=== PATIENT | female | born 1950 | race Caucasian/White ===

== ENCOUNTER → 2023-11-12 | Outpatient (CLI) | payer MEDICARE, SELFPAY ==
[2023-11-12 13:41] LABS: Amphetamine Urine VISTA NEGATIVE (<1000 ng/mL); Barbiturate Urine VISTA NEGATIVE (< 200 ng/mL); Benzodiazepine Urine VISTA NEGATIVE (< 200 ng/mL); Cocaine Urine VISTA NEGATIVE (< 300 ng/mL); Ecstacy Urine VISTA NEGATIVE (< 500 ng/mL); Methadone Urine VISTA NEGATIVE (< 300 ng/mL); PCP Urine VISTA NEGATIVE (< 25 ng/mL); THC Urine VISTA NEGATIVE (< 50 ng/mL); Vista UDS pH Range 4
== END | disposition home or self-care (01) ==
PROVIDERS: Referring Provider Anesthesiology; Visit Provider Anesthesiology
DX: F11.20 Opioid dependence, uncomplicated (principal)
CPT/HCPCS: 80307

== ENCOUNTER 2024-02-14 14:50 | Inpatient (IN) | payer MEDICARE, SELFPAY ==
[2024-02-14] VITALS (10 sets, daily range): BP systolic 110–137; BP diastolic 54–79; PULSE 65–88; RESP 16–20; TEMP 36.3–37.2; O2SAT 95–98; BMI 23.6; BMI 22.0
--- NOTE | 2024-02-14 14:57 | CT_ITS ---
STUDY: CT BRAIN WITHOUT CONTRAST REASON FOR EXAM: Female, 73 years old. weakness general RADIATION DOSAGE (If Supplied By Facility): CTDIvol = ( 44.99 ) mGy, DLP = ( 796.11 ) mGycm TECHNIQUE: Transaxial CT imaging of the brain was performed without administration of intravenous contrast material. Individualized dose optimization techniques were used for this CT. COMPARISON: No relevant priors. FINDINGS: Normal soft tissue structures. Normal calvarium. There is mild cerebral atrophy with widening of the extra-axial spaces and ventricular dilatation. There are areas of decreased attenuation within the white matter tracts of the supratentorial brain, consistent with microvascular disease changes. Normal basal ganglia and thalami. Normal brainstem. Normal cerebellum. There is no intracranial hemorrhage. There are no findings of an acute ischemic infarction. Atherosclerotic calcification of the cavernous portions of the internal carotid arteries bilaterally. Normal visualized paranasal sinuses. CT/Brain/Head without Contrast IMPRESSION: Chronic involutional changes of the brain. Electronically Signed: Josr Schreiber MD at 15:31 EDT ,
[2024-02-14 15:22] LABS: Absolute Lymphocyte Count 0.61 X10^3/uL (0.83-4.51); Absolute Neutrophil Count 7.5 X10^3/uL (2.0-7.7); Basophil# 0.03 X10^3/uL; Basophil% 0.3 % (0-1); Eosinophil# 0.11 X10^3/uL; Eosinophils% 1.2 % (0-5); Hematocrit 50.3 % (37-47); Hemoglobin 15.6 g/dL (12.0-15.0); Lymphocyte # 0.61 X10^3/ul (0.83-4.51); Lymphocyte % 6.6 % (19-41); Mean Corpuscular Hgb 28.9 pg (27.0-32.0); Mean Corpuscular Volume 93.3 fL (81-99); Mean Platelet Vol. 9.9 fl (6.2-12.0); Monocyte# 0.62 X10^3/uL; Monocyte% 6.7 % (0-10); NRBC Flagged by Analyzer 0 % (0-5); Neutrophil # 7.54 X10^3/uL (2.7-7.7); POSITIVE MORPHOLOGY YES; Platelet Count 214 K/mm3 (150-450); RBC Distribution Width CV 25.4 % (11.6-14.6); RBC Distribution Width SD 83.7 fl (35.1-43.9); Red Blood Count 5.39 M/mm3 (4.2-5.4); White Blood Count 9.3 K/mm3 (4.4-11.0)
--- NOTE | 2024-02-14 15:27 | RAD_ITS ---
STUDY: X-RAY CHEST REASON FOR EXAM: Female, 73 years old. Recent dx of pneumonia TECHNIQUE: AP and lateral views of the chest. COMPARISON: None. FINDINGS: EKG electrodes are seen. Small left pleural effusion with left lower lobe infiltrate. There is no demonstrated pleural abnormality. Normal size heart. Normal mediastinum and goyo. Normal visualized pulmonary arteries. There is atherosclerotic tortuosity of the aortic arch and descending thoracic aorta. There is demineralization of the osseous structures. Normal visualized ribs, clavicles, and shoulders. There is no demonstrated abnormality of the visualized soft tissue structures of the upper abdomen. RAD/Chest PA and Lateral IMPRESSION: Left pleural effusion with left basilar infiltrate. Electronically Signed: Josr Schreiber MD at 15:43 EDT ,
[2024-02-14 15:36] LABS: Differential Indicated SCAN CRITERIA MET
[2024-02-14 15:46] LABS: ALB/GLOB Ratio 0.8 RATIO (0.9-2.4); AST(SGOT) 54 U/L (15-37); Alanine Aminotransfer ALT/SGPT 99 U/L (13-56); Alkaline Phosphatase 248 U/L (45-117); Anion Gap 6 (5-15); BUN 20 mg/dL (7-18); BUN/Creat Ratio 23.6 RATIO (10-20); Chloride 114 mmol/L (98-107); Creatinine, Serum 0.85 mg/dL (0.55-1.02); EST Glomerular Filtration Rate 70 mL/min (>60); Est Glom Filt Rate - Afr Amer 85 mL/min (>60); Globulin 3.9 g/dL (2.2-4.2); Glucose 155 mg/dL (74-106); Lipase 27 U/L (13-75); Potassium 4.6 mmol/L (3.5-5.1); Protein, Total 6.9 g/dL (6.4-8.2); Sodium Level 143 mmol/L (136-145); Troponin-I HS 11 pg/mL (3.0-54.0)
[2024-02-14 15:52] LABS: Platelet Estimate ADEQUATE (ADEQ)
[2024-02-14 15:53] LABS: Anisocytosis 1+; Hypochromasia 1+
[2024-02-14 16:51] LABS: Mucous, Urine 0 SEEN /hpf (<or=2+)
[2024-02-14 16:54] LABS: Color, Urine Yellow (Yellow); Glucose, Dipstick Normal (Normal); Ketone-Dipstick Negative (Negative); Leukocyte Esterase-Dipstick 100 /ul (Negative); Nitrite-Dipstick Negative (Negative); Occult Blood-Urine 150 /ul (Negative); Protein-Dipstick Negative (Negative); Specific Gravity, Urine 1.015 (1.002-1.030); Urine Bilirubin Dipstick Negative (Negative); Urine Clarity Sl Cldy (Clear); Urine Urobilinogen Normal (Normal)
--- NOTE | 2024-02-14 16:58 | EDS_ITS ---
HPI History of Present Illness Chief Complaint: Weakness Narrative Narrative: Patient is a 73-year-old female with past medical of PTSD, T-cell lymphoma, CVA, type 2 diabetes, CKD who presented to the emergency department from pain management clinic for concern for stroke. According to the pain management physician who brought the patient down she was having her pump replaced today as he is making a medication adjustment. He noted that she had extreme weakness in her right upper extremity with unable to line installer repairer with her right hand which prompted them to bring her here further evaluation management. According to the patient she notes that she went to bed around 11 PM last night and was completely normal. States that she woke up around 6 AM and noted that she had extreme difficulty moving her right arm. Patient here in the Emergency Department states that now she can move her right arm she has decreased line installer repairer strength though. Patient's physician from pain management was concerned that she had a stroke and had similar symptoms in the past which prompted them to bring her h [facility] Medical History Depressed Dysphagia as late effect of cerebral aneurysm [place] disease Foot drop, bilateral Fibromyalgia Asthma PTSD (post-traumatic stress disorder) T-cell lymphoma Insomnia Pancreatitis GERD (gastroesophageal reflux disease) Gout Anxiety Anemia Hypothyroidism Essential hypertension CHF (congestive heart failure) Convulsion Type II diabetes mellitus Chronic kidney disease Cognitive communication deficit Hypokalemia Bacteremia Difficulty walking Weakness Pneumonia Sepsis Home Medications ?Medication ?Instructions ?Recorded ?Last Taken ?Type Lactobacillus rhamnosus GG 15 1 cap PO 4X/DAY 02/14/24 02/13/24 History billion cell sprinkle capsule (Culturelle) acetaminophen 325 mg tablet 650 mg PO Q4H PRN pain 02/14/24 02/05/24 History allopurinol 100 mg tablet 100 mg PO DAILY 02/14/24 02/13/24 History aspirin 81 mg tablet,delayed 81 mg PO DAILY 02/14/24 02/13/24 History release baclofen 10 mg tablet 10 mg PO Q8H PRN muscle spasm 02/14/24 02/13/24 History buspirone 10 mg tablet 20 mg PO TID 02/14/24 02/13/24 History clopidogrel 75 mg tablet 75 mg PO DAILY 02/14/24 02/13/24 History deutetrabenazine 12 mg tablet 12 mg PO BID 02/14/24 02/13/24 History (Austedo) docusate sodium 100 mg capsule 100 mg PO DAILY 02/14/24 02/13/24 History ergocalciferol (vitamin D2) 1,250 1,250 mcg PO WE 02/14/24 02/12/24 History mcg (50,000 unit) capsule ezetimibe 10 mg tablet 10 mg PO DAILY 02/14/24 02/13/24 History fludrocortisone 0.1 mg tablet 0.1 mg PO DAILY 02/14/24 02/12/24 History ipratropium 20 mcg-albuterol 100 1 puff inhalation 4X/DAY 02/14/24 02/13/24 History mcg/actuation mist for inhalation (Combivent Respimat) levothyroxine 75 mcg tablet 75 mcg PO DAILY 02/14/24 02/13/24 History vbgxwx-hsxonkpk-mhviqsh 2 cap PO 4X/DAY 02/14/24 02/13/24 History 24,000-76,000-120,000 unit capsule,delayed rel (Creon) loperamide 2 mg tablet 2 mg PO Q6H PRN loose stool 02/14/24 02/06/24 History lubiprostone 24 mcg capsule 24 mcg PO BID 02/14/24 02/13/24 History melatonin 5 mg tablet 5 mg PO DAILY 02/14/24 02/13/24 History metoprolol succinate 100 mg 100 mg PO DAILY 02/14/24 02/13/24 History tablet,extended release 24 hr mirtazapine 15 mg tablet 15 mg PO QHS 02/14/24 02/13/24 History montelukast 10 mg tablet 10 mg PO DAILY 02/14/24 02/13/24 History multivitamin (Daily Multi-Vitamin 1 tab PO DAILY 02/14/24 02/13/24 History tablet) nitroglycerin 0.3 mg sublingual 0.3 mg sublingual Q5M PRN chest 02/14/24 02/13/24 History tablet pain ondansetron 4 mg disintegrating 4 mg PO Q6H 02/14/24 02/06/24 History tablet pantoprazole 40 mg tablet,delayed 40 mg PO DAILY 02/14/24 02/13/24 History release paroxetine HCl 40 mg tablet 40 mg PO DAILY 02/14/24 02/13/24 History potassium chloride 20 mEq 20 meq PO DAILY 02/14/24 02/13/24 History tablet,extended release(part/cryst) prednisone 5 mg tablet 5 mg PO BID 02/14/24 02/13/24 History sennosides 8.6 mg-docusate sodium 1 tab-cap PO BID PRN constipation 02/14/24 02/14/24 History 50 mg tablet (Senna with Docusate Sodium) zonisamide 100 mg capsule 200 mg PO BID 02/14/24 02/14/24 History Allergy/AdvReac Type Severity Reaction Status Date / Time codeine Allergy Intermediate Nausea/Vom/ Verified 02/14/24 15:04 Diarrhea hydrocodone Allergy Intermediate Nausea Verified 02/14/24 15:04 adhesive tape Allergy Mild Hives Verified 02/14/24 15:04 furosemide (From Lasix) Allergy NEEDS Verified 02/14/24 15:04 FOLLOW-UP pregabalin (From Lyrica) Allergy NEEDS Verified 02/14/24 15:04 FOLLOW-UP celecoxib AdvReac Intermediate Nausea Verified 02/14/24 15:04 oxycodone AdvReac Intermediate Nausea Verified 02/14/24 15:04 lansoprazole AdvReac Nausea Verified 02/14/24 15:04 meloxicam AdvReac Nausea Verified 02/14/24 15:04 mirtazapine AdvReac Nausea Verified 02/14/24 15:04 naloxone (From Talwin NX) AdvReac Nausea Verified 02/14/24 15:04 pentazocine AdvReac Nausea Verified 02/14/24 15:04 rofecoxib AdvReac Nausea Verified 02/14/24 15:04 Social History Smoking Status: Never smoker ROS ROS ED ROS Narrative Constitutional: Denies any fevers, chills, headaches, lightness, dizziness Eyes: Denies change in vision double vision blurry Cardiovascular: Denies chest pain or palpitation Respiratory: Denies coughing wheezing shortness of breath Abdomen: Denies abdominal pain nausea vomit diarrhea : Denies urinary Neurological: Complains of right upper extremity weakness and hand weakness as noted above Musculoskeletal: Denies back pain Skin: States that she has bruising over her body EXAM Physical Exam Narrative Exam Narrative: General: Patient lying in bed rest comfortably did not appear to be in acute distress Head: Atraumatic, normocephalic Eyes: PERRL bilaterally, EOMI bilateral, no conjunctival injection noted Neck: Soft, supple, trachea midline Cardiovascular: Regular rate and rhythm no murmurs gallops rubs noted Respiratory: Clear to auscultation bilaterally no rales rhonchi or wheezes noted Abdomen: Soft, nondistended, nontender to palpation, bowel sounds present x 4 Musculoskeletal: Patient has decreased line installer repairer strength in the right hand when compared to the left Extremities: +4/5 strength noted in the bilateral upper and lower extremities, radial pulses +2/4 in bilateral upper extremities Neurological: Patient following commands knew that she was at [facility] year is 2023. She told me there was a clock on the wall and there was a TV on the wall. She told me that I did walk trauma left wrist. NIH of 0 GCS 15 Skin: Warm, dry, tact Const Vital Signs: 02/14/24 14:53 02/14/24 15:51 02/14/24 16:00 Temperature 97.4 F L Temperature Source Oral Pulse Rate 72 65 65 Respiratory Rate 20 H 16 16 Respiratory Effort Respiratory Pattern Blood Pressure 137/65 H 129/70 H 129/70 H Blood Pressure Mean 89 89 89 Pulse Ox 97 96 96 Oxygen Delivery Method Room Air Room Air Room Air 02/14/24 16:22 02/14/24 17:00 02/14/24 17:19 Temperature 98.9 F Temperature Source Pulse Rate 72 72 Respiratory Rate 19 H 19 H Respiratory Effort Normal Non-Labored Respiratory Pattern Normal Blood Pressure 110/59 L 119/79 Blood Pressure Mean 76 92 Pulse Ox 97 96 Oxygen Delivery Method Room Air 02/14/24 17:30 Temperature 98.9 F Temperature Source Oral Pulse Rate 75 Respiratory Rate 17 Respiratory Effort Respiratory Pattern Blood Pressure 129/60 H Blood Pressure Mean 83 Pulse Ox 97 Oxygen Delivery Method Room Air MDM MDM MDM Narrative Medical decision making narrative: Patient is a 73-year-old female who presented to the emergency department with a chief complaint of right upper extremity weakness that has now improved. Her l ast known well was 11 PM last night when she went to bed. Patient would not be a tenecteplase candidate as her last known well once again was as noted and her symptoms are improved. Patient will have a workup performed here on the differential diagnose includes but not limited to TIA, intracranial hemorrhage, UTI, pneumonia. Once workup is obtained reviewed she will be reevaluated. Patient CBC was reviewed and was largely unremarkable no evidence of leukocytosis white blood count normal at 9.3, hemoglobin was 15.6, platelet count normal at 214. Patient's sodium normal at 143, potassium normal at 4.6, creatinine normal at 0.85. Patient's lactic acid normal at 2, AST and ALT were 54 and 99 respectively no previous blood draw to compare to alk phosphatase elevated to 48. Patient's urinalysis showed 100 leukocyte esterase negative nitrates in the urine microscopic exam is pending. Patient CT head and brain without contrast reviewed and showed chronic involutional changes of the brain no acute intracranial processes. Patient's chest x-ray was reviewed by myself and by radiology which showed a left pleural effusion with left basilar infiltrate. Will give her a dose of Rocephin and azithromycin. At this point time do believe the patient will warrant admission for her TIA with her right upper extremity weakness that has resolved overall with still some decreased line installer repairer strength in the right hand when compared to the left. Patient case will be discussed with hospitalist. Patient case was discussed with hospitalist who accept patient for admission. She is requesting adding on a CTA of the head and neck which was added on. Patient was notified is agreeable this plan all question concerns answered bedside. Lab Data Labs: Laboratory Results - last 24 hr 02/14/24 02/14/24 15:15 16:45 WBC 9.3 RBC 5.39 Hgb 15.6 H Hct 50.3 H MCV 93.3 MCH 28.9 MCHC 31.0 L RDW Std Deviation 83.7 H RDW Coeff of Hardy 25.4 H Plt Count 214 MPV 9.9 Immature Gran % (Auto) 4.200 H Neut % (Auto) 81.0 H Lymph % (Auto) 6.6 L [place] % (Auto) 6.7 Eos % (Auto) 1.2 Baso % (Auto) 0.3 Absolute Neuts (auto) 7.5 Absolute Lymphs (auto) 0.61 L Nucleated RBC % 0 Differential Comment Platelet Estimate ADEQUATE Hypochromasia 1+ Anisocytosis 1+ Sodium 143 Potassium 4.6 Chloride 114 H Carbon Dioxide 22.0 Anion Gap 6 BUN 20 H Creatinine 0.85 Estim Creat Clear Calc 50.90 Est GFR (MDRD) Af Amer 85 Est GFR (MDRD) Non-Af 70 BUN/Creatinine Ratio 23.6 H Glucose 155 H Lactic Acid 2.0 Calcium 9.0 Total Bilirubin 0.20 AST 54 H ALT 99 H Alkaline Phosphatase 248 H Troponin I High Sens 11 Total Protein 6.9 Albumin 3.0 L Globulin 3.9 Albumin/Globulin Ratio 0.8 L Lipase 27 Urine Color Yellow Urine Clarity Sl Cldy Urine pH 6.0 Ur Specific [place] 1.015 Urine Protein Negative Urine Glucose (UA) Normal Urine Ketones Negative Urine Occult Blood 150 H Urine Nitrite Negative Urine Bilirubin Negative Urine Urobilinogen Normal Ur Leukocyte Esterase 100 H Urine RBC 25-50 SEEN Urine WBC 10-25 SEEN Ur Squamous Epith Cells 5-10 SEEN Ur Transition Epith Cell 0-5 SEEN Ur Renal Epithelial Cell 0-5 SEEN Urine Bacteria RARE Urine Mucus 0 SEEN Radiography Diagnostic Testing: Clinical Impression(s) from Imaging Studies Brain CT 02/14/24 14:57 IMPRESSION: Chronic involutional changes of the brain. Electronically Signed: Josr Schreiber MD at 15:31 EDT , Chest X-Ray 02/14/24 15:27 IMPRESSION: Left pleural effusion with left basilar infiltrate. Electronically Signed: Josr Schreiber MD at 15:43 EDT , Discharge Plan Triage Chief Complaint: Weakness ED Provider: Miguel Ángel Oakes Dx/Rx/DC Orders Clinical Impression: Brain TIA Prescriptions: No Action acetaminophen 325 mg tablet 650 mg PO Q4H PRN (Reason: pain) allopurinol 100 mg tablet 100 mg PO DAILY aspirin 81 mg tablet,delayed release (DR/EC) 81 mg PO DAILY [place] 12 mg tablet 12 mg PO BID baclofen 10 mg tablet 10 mg PO Q8H PRN (Reason: muscle spasm) buspirone 10 mg tablet 20 mg PO TID clopidogrel 75 mg tablet 75 mg PO DAILY Creon 24,000-76,000 -120,000 unit capsule,delayed release(DR/EC) 2 cap PO 4X/DAY Combivent Respimat 20-100 mcg/actuation mist 1 puff inhalation 4X/DAY Culturelle 15 billion cell capsule, sprinkle 1 cap PO 4X/DAY multivitamin [Daily Multi-Vitamin] Tablet 1 tab PO DAILY docusate sodium 100 mg capsule 100 mg PO DAILY ergocalciferol (vitamin D2) 1,250 mcg (50,000 unit) capsule 1,250 mcg PO WE fludrocortisone 0.1 mg tablet 0.1 mg PO DAILY Rx Instructions: HOLD IF SBP >130 ezetimibe 10 mg tablet 10 mg PO DAILY levothyroxine 75 mcg tablet 75 mcg PO DAILY loperamide 2 mg tablet 2 mg PO Q6H PRN (Reason: loose stool) lubiprostone 24 mcg capsule 24 mcg PO BID melatonin 5 mg tablet 5 mg PO DAILY metoprolol succinate 100 mg tablet extended release 24 hr 100 mg PO DAILY Patient Comments: MED LIST STATES 50MG, PT GOT 100MG FILLED ON 01/20/24 montelukast 10 mg tablet 10 mg PO DAILY mirtazapine 15 mg tablet 15 mg PO QHS nitroglycerin 0.3 mg tablet, sublingual 0.3 mg sublingual Q5M PRN (Reason: chest pain) Rx Instructions: do not exceed 3 doses per episode ondansetron 4 mg tablet,disintegrating 4 mg PO Q6H prednisone 5 mg tablet 5 mg PO BID potassium chloride 20 mEq tablet,ER particles/crystals 20 meq PO DAILY pantoprazole 40 mg tablet,delayed release (DR/EC) 40 mg PO DAILY paroxetine HCl 40 mg tablet 40 mg PO DAILY Patient Comments: MED LIST STATES 20MG, PT GOT 40MG FILLED ON 01/20/24 sennosides-docusate sodium [Senna with Docusate Sodium] 8.6-50 mg tablet 1 tab-cap PO BID PRN (Reason: constipation) zonisamide 100 mg capsule 200 mg PO BID Primary Care Provider: Owen Nguyen Referrals: Owen Nguyen MD [Primary Care Provider] - Print Language: Guyanese
[2024-02-14 17:06] LABS: Red Blood Cells-Urine 25-50 SEEN /hpf (0-5); Squamous Epithelial Cells - UA 5-10 SEEN /hpf (5-10); White Blood Cells 10-25 SEEN /hpf (0-5)
[2024-02-14 17:07] LABS: Bacteria RARE /hpf (None Seen); Renal Epithelial Cells 0-5 SEEN /hpf (0-5); Transitional Epithelial - Ur 0-5 SEEN /hpf (0-5)
[2024-02-14] MEDS: Ceftriaxone 1 GM/50 ML BAG IV (17:31)
--- NOTE | 2024-02-14 17:40 | CT_ITS ---
INDICATION: right arm weakness EXAMINATION: CT BRAIN WITHOUT CONTRAST, CTA HEAD, AND CTA NECK TECHNIQUE: Noncontrast axial images were obtained of the brain. Subsequently, routine carotid CT angiogram protocol was performed without and with IV contrast. In addition, images were obtained of the [place]. NASCET criteria using the distal ICAs for comparison were used for evaluation of stenoses. 3D reconstructions were reviewed. The protocol utilizes one or more of the following dose reduction techniques: automated exposure control, adjustment of mA and/or kV according to patient size,and/or use of iterative reconstruction technique. IV Contrast dosage and agent: COMPARISON: FINDINGS: --CT BRAIN WITHOUT CONTRAST: BRAIN PARENCHYMA: No intra- or extra-axial hemorrhage. No evidence of acute infarct. No intracranial mass or mass effect. There is preservation of the mcallister/white matter interface. Posterior fossa structures are unremarkable. CSF SPACES: Appropriate for age. No hydrocephalus. Basal cisterns are patent. CALVARIUM, SKULL BASE, PARANASAL SINUSES AND MASTOID AIR CELLS: Clear. No discrete lytic or blastic abnormalities. ASPECTS Score for Acute Strokes: 10 --CTA NECK: AORTIC ARCH AND BRANCHES: Normal anatomy, patent. RIGHT CCA: No occlusion, significant stenosis or dissection. RIGHT ICA: No occlusion, significant stenosis or dissection. LEFT CCA: No occlusion, significant stenosis or dissection. LEFT ICA: No occlusion, significant stenosis or dissection. Possible fibromuscular dysplasia at the distal segment. RIGHT VERTEBRAL ARTERY: No occlusion, significant stenosis or dissection. LEFT VERTEBRAL ARTERY: No occlusion, significant stenosis or dissection. NECK SOFT TISSUES: Unremarkable. Bilateral patchy groundglass densities in the visualized lungs. Bilateral pleural effusions, right more than left. --CTA HEAD: --Anterior circulation: ICAs: No significant stenosis at the intracranial/visualized segments. ACAs: No significant stenosis at the visualized segments. ACOM: Present. MCAs: No significant stenosis at the visualized segments. --Posterior circulation: PCOMs: Patent bilaterally. miller rod mill: No significant stenosis at the visualized segments. BASILAR ARTERY: No significant stenosis. VERTEBRAL ARTERIES: No significant stenosis at the intradural/visualized segments. No evidence of intracranial aneurysm or vascular malformation. CT/CTA Head AND Neck W/ Contrast IMPRESSION: Possible fibromuscular dysplasia at the distal segment of the cervical left internal carotid artery. Electronically Signed: Miguel Ángel Cool DO at 18:33 EDT ,
--- NOTE | 2024-02-14 17:45 | ED.RN ---
This RN called report to RUBEN Dubose at [facility].
--- NOTE | 2024-02-14 18:51 | HP.PCM.HOS_ITS ---
HPI - General General Date of Admission: 02/14/24 Date of Service: 02/14/24 Chief Complaint: Right arm and leg weakness HPI Narrative BERNADETTE EVERETT, is a 73 F with history of chronic abdominal pain due to gastric lymphoma and chronic pancreatitis following with pain management with Dilaudid pain pump in place, gout, hypothyroidism, IBS, anxiety who presented to [facility] ED 02/10/2024 with right upper and lower extremity weakness and paresthesias. Patient's last known normal was 11 PM the night before when she went to bed and she woke up with right arm and leg weakness and paresthesias. Went to her pain management appointment and due to her right- sided deficits she was sent to the ED. Given patient's last known well being the night before stroke call not initiated as patient outside window for TNK. She had CTA which showed possible fibromuscular dysplasia at distal segment of the cervical left internal carotid artery and CT showed chronic changes. Given her deficits and concerns for CVA hospitalist contacted for admission. Patient evaluated at bedside and reports she was doing fine at 11 PM last night and then woke up around 6 AM with the inability to move her right arm or leg and additionally had paresthesias there. Patient went to her pain management physician and due to her persistent deficits she was sent to the ED. She does not feel she has had any significant change in her extremities from this a.m. She does not think she has had any word finding difficulty and denies any changes in her vision or face that she is aware of. Has some decrease sensation in right upper and lower extremity. Has some cough that is residual from recent pneumonia with no increase or change, denies any increased shortness of breath. Has chronic abdominal pain that is unchanged from usual. No other new or focal complaints. FORMERLY [facility] Medical History Depressed Dysphagia as late effect of cerebral aneurysm Gomez disease Foot drop, bilateral Fibromyalgia Asthma PTSD (post-traumatic stress disorder) T-cell lymphoma Insomnia Pancreatitis GERD (gastroesophageal reflux disease) Gout Anxiety Anemia Hypothyroidism Essential hypertension CHF (congestive heart failure) Convulsion Type II diabetes mellitus Chronic kidney disease Cognitive communication deficit Hypokalemia Bacteremia Difficulty walking Weakness Pneumonia Sepsis Home Medications ?Medication ?Instructions ?Recorded ?Last Taken ?Type Lactobacillus rhamnosus GG 15 1 cap PO 4X/DAY 02/14/24 02/13/24 History billion cell sprinkle capsule (Culturelle) acetaminophen 325 mg tablet 650 mg PO Q4H PRN pain 02/14/24 02/05/24 History allopurinol 100 mg tablet 100 mg PO DAILY 02/14/24 02/13/24 History aspirin 81 mg tablet,delayed 81 mg PO DAILY 02/14/24 02/13/24 History release baclofen 10 mg tablet 10 mg PO Q8H PRN muscle spasm 02/14/24 02/13/24 History buspirone 10 mg tablet 20 mg PO TID 02/14/24 02/13/24 History clopidogrel 75 mg tablet 75 mg PO DAILY 02/14/24 02/13/24 History deutetrabenazine 12 mg tablet 12 mg PO BID 02/14/24 02/13/24 History (Austedo) docusate sodium 100 mg capsule 100 mg PO DAILY 02/14/24 02/13/24 History ergocalciferol (vitamin D2) 1,250 1,250 mcg PO WE 02/14/24 02/12/24 History mcg (50,000 unit) capsule ezetimibe 10 mg tablet 10 mg PO DAILY 02/14/24 02/13/24 History fludrocortisone 0.1 mg tablet 0.1 mg PO DAILY 02/14/24 02/12/24 History ipratropium 20 mcg-albuterol 100 1 puff inhalation 4X/DAY 02/14/24 02/13/24 History mcg/actuation mist for inhalation (Combivent Respimat) levothyroxine 75 mcg tablet 75 mcg PO DAILY 02/14/24 02/13/24 History jxnemp-utvqcpur-jbdnbgf 2 cap PO 4X/DAY 02/14/24 02/13/24 History 24,000-76,000-120,000 unit capsule,delayed rel (Creon) loperamide 2 mg tablet 2 mg PO Q6H PRN loose stool 02/14/24 02/06/24 History lubiprostone 24 mcg capsule 24 mcg PO BID 02/14/24 02/13/24 History melatonin 5 mg tablet 5 mg PO DAILY 02/14/24 02/13/24 History metoprolol succinate 100 mg 100 mg PO DAILY 02/14/24 02/13/24 History tablet,extended release 24 hr mirtazapine 15 mg tablet 15 mg PO QHS 02/14/24 02/13/24 History montelukast 10 mg tablet 10 mg PO DAILY 02/14/24 02/13/24 History multivitamin (Daily Multi-Vitamin 1 tab PO DAILY 02/14/24 02/13/24 History tablet) nitroglycerin 0.3 mg sublingual 0.3 mg sublingual Q5M PRN chest 02/14/24 02/13/24 History tablet pain ondansetron 4 mg disintegrating 4 mg PO Q6H 02/14/24 02/06/24 History tablet pantoprazole 40 mg tablet,delayed 40 mg PO DAILY 02/14/24 02/13/24 History release paroxetine HCl 40 mg tablet 40 mg PO DAILY 02/14/24 02/13/24 History potassium chloride 20 mEq 20 meq PO DAILY 02/14/24 02/13/24 History tablet,extended release(part/cryst) prednisone 5 mg tablet 5 mg PO BID 02/14/24 02/13/24 History sennosides 8.6 mg-docusate sodium 1 tab-cap PO BID PRN constipation 02/14/24 02/14/24 History 50 mg tablet (Senna with Docusate Sodium) zonisamide 100 mg capsule 200 mg PO BID 02/14/24 02/14/24 History Allergy/AdvReac Type Severity Reaction Status Date / Time codeine Allergy Intermediate Nausea/Vom/ Verified 02/14/24 15:04 Diarrhea hydrocodone Allergy Intermediate Nausea Verified 02/14/24 15:04 adhesive tape Allergy Mild Hives Verified 02/14/24 15:04 furosemide (From Lasix) Allergy NEEDS Verified 02/14/24 15:04 FOLLOW-UP pregabalin (From Lyrica) Allergy NEEDS Verified 02/14/24 15:04 FOLLOW-UP celecoxib AdvReac Intermediate Nausea Verified 02/14/24 15:04 oxycodone AdvReac Intermediate Nausea Verified 02/14/24 15:04 lansoprazole AdvReac Nausea Verified 02/14/24 15:04 meloxicam AdvReac Nausea Verified 02/14/24 15:04 mirtazapine AdvReac Nausea Verified 02/14/24 15:04 naloxone (From John RYAN) AdvReac Nausea Verified 02/14/24 15:04 pentazocine AdvReac Nausea Verified 02/14/24 15:04 rofecoxib AdvReac Nausea Verified 02/14/24 15:04 Social History Smoking Status: Never smoker ROS ROS Narrative General: Denies fever/chills HENT: Denies stuffy nose, denies sore throat EYES: Denies changes in vision Resp: Still has residual cough from pneumonia but no worsening, denies shortness of breath Cardiac: Denies chest pain GI: Chronic abdominal pain and GI upset : Denies changes in urination Extremity: Denies swelling MSK: Right sided weakness upper and lower Neuro: Decreased sensation in right sided extremities Heme: Easy bruising Skin: Denies rashes Psychiatric: No complaints voiced Vital Signs Vital Signs Vital Signs: 02/14/24 14:53 02/14/24 15:51 02/14/24 16:00 Temperature 97.4 F L Temperature Source Oral Pulse Rate 72 65 65 Respiratory Rate 20 H 16 16 Respiratory Effort Respiratory Pattern Blood Pressure 137/65 H 129/70 H 129/70 H Blood Pressure Mean 89 89 89 Pulse Ox 97 96 96 Oxygen Delivery Method Room Air Room Air Room Air 02/14/24 16:22 02/14/24 17:00 02/14/24 17:19 Temperature 98.9 F Temperature Source Pulse Rate 72 72 Respiratory Rate 19 H 19 H Respiratory Effort Normal Non-Labored Respiratory Pattern Normal Blood Pressure 110/59 L 119/79 Blood Pressure Mean 76 92 Pulse Ox 97 96 Oxygen Delivery Method Room Air 02/14/24 17:30 02/14/24 18:00 Temperature 98.9 F Temperature Source Oral Pulse Rate 75 79 Respiratory Rate 17 20 H Respiratory Effort Respiratory Pattern Blood Pressure 129/60 H 121/54 H Blood Pressure Mean 83 76 Pulse Ox 97 98 Oxygen Delivery Method Room Air Room Air Weight Weight: 62.6 kg Body Mass Index (BMI) 23.6 Physical Exam Narrative General: Alert, oriented, no apparent distress HEENT: Atraumatic, normocephalic Eyes: Anicteric, normal conjunctiva, extraocular movements intact, pupils equal Neck: Supple Respiratory: Somewhat diminished left base, normal respiratory effort Cardiovascular: Regular rate and rhythm GI: Soft, diffusely tender without rebound, guarding, rigidity Extremities: No edema Musculoskeletal: Strength 3- out of 5 in right upper extremity, 5 out of 5 left upper extremity, 1 out of 5 right lower extremity, 5 out of 5 left lower extremity Neuro: Decreased sensation in right upper and lower extremities, possibly some mild dysarthria, cranial nerves II through XII otherwise appear intact, unable to perform [id number] with right hand, no difficulty with left Skin: Some various diffuse bruising Psych: Cooperative Results Lab / Micro Data 02/14/24 15:15 02/14/24 15:15 Labs: Laboratory Results - last 24 hr 02/14/24 15:15: WBC 9.3, RBC 5.39, Hgb 15.6 H, Hct 50.3 H, MCV 93.3, MCH 28.9, M CHC 31.0 L, RDW Std Deviation 83.7 H, RDW Coeff of Hardy 25.4 H, Plt Count 214, MPV 9.9, Immature Gran % (Auto) 4.200 H, Neut % (Auto) 81.0 H, Lymph % (Auto) 6.6 L, [place] % (Auto) 6.7, Eos % (Auto) 1.2, Baso % (Auto) 0.3, Absolute Neuts (auto) 7.5, Absolute Lymphs (auto) 0.61 L, Nucleated RBC % 0, Differential Comment , Platelet Estimate ADEQUATE, Hypochromasia 1+, Anisocytosis 1+, Sodium 143, Potassium 4.6, Chloride 114 H, Carbon Dioxide 22.0, Anion Gap 6, BUN 20 H, Creatinine 0.85, Estim Creat Clear Calc 50.90, Est GFR (MDRD) Af Amer 85, Est GFR (MDRD) Non-Af 70, BUN/Creatinine Ratio 23.6 H, Glucose 155 H, Lactic Acid 2.0, Calcium 9.0, Total Bilirubin 0.20, AST 54 H, ALT 99 H, Alkaline Phosphatase 248 H, Troponin I High Sens 11, Total Protein 6.9, Albumin 3.0 L, Globulin 3.9, Albumin/Globulin Ratio 0.8 L, Lipase 27 02/14/24 16:45: Urine Color Yellow, Urine Clarity Sl Cldy, Urine pH 6.0, Ur Specific [place] 1.015, Urine Protein Negative, Urine Glucose (UA) Normal, Urine Ketones Negative, Urine Occult Blood 150 H, Urine Nitrite Negative, Urine Bilirubin Negative, Urine Urobilinogen Normal, Ur Leukocyte Esterase 100 H, Urine RBC 25-50 SEEN, Urine WBC 10-25 SEEN, Ur Squamous Epith Cells 5-10 SEEN, Ur Transition Epith Cell 0-5 SEEN, Ur Renal Epithelial Cell 0-5 SEEN, Urine Bacteria RARE, Urine Mucus 0 SEEN Imaging Radiology Impression Brain CT 02/14/24 14:57 IMPRESSION: Chronic involutional changes of the brain. Electronically Signed: Josr Schreiber MD at 15:31 EDT , Chest X-Ray 02/14/24 15:27 IMPRESSION: Left pleural effusion with left basilar infiltrate. Electronically Signed: Josr Schreiber MD at 15:43 EDT , Head/Neck CTA 02/14/24 17:40 IMPRESSION: Possible fibromuscular dysplasia at the distal segment of the cervical left internal carotid artery. 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 Patient not TNK candidate due to last known normal 11 PM last night and no large vessel occlusion that would be candidate for thrombectomy -Admit to tele -CT head w/ chronic changes in ED -CTA head and neck with possible fibromuscular dysplasia at distal segment of cervical left internal carotid artery -Discussed with vascular surgeon, no acute intervention necessary, she be on DAPT and she can be seen in the office on discharge -Unable to obtain MRI due to patient's pain pump which she confirmed, repeat CT at 24 hours -NIH q4hr -Continue DAPT and statin -Echo w/ bubble study -PT/OT/Speech eval -Teleneuro consult placed -Hold BP medications to allow for permissive hypertension for 24 hours unless SBP greater than 220 or DBP greater than 120 or until stroke is ruled out # Chronic abdominal pain/chronic pancreatitis/gastric lymphoma/implanted Dilaudid pain pump/IBS -Pain pump in place -Continue Creon -Continue lubiprostone if able # COPD -Patient on home inhalers, will continue -Had recent pneumonia which was treated, has not had any increased shortness of breath or change in cough so suspect chest x-ray findings may be residual from recent pneumonia -Given patient afebrile, no elevated white count, no increased shortness of breath, no worsening cough/significantly productive cough we will hold off on further IV antibiotics #Hx movement disorder -On deutetrabenazine -Continue if someone able to bring pt supply #Hypothyroidism -Continue Synthroid #GERD -Continue PPI # Gout -Continue allopurinol #DVT ppx: Lovenox subcu Jolene Wagoner MD Time spent in the patient's overall evaluation,decision-making process, review of diagnostic data, adjustment of management, discussion with other providers, nursing nursing and ancillary staff involved in patient's care documentation, 76 Minutes Charges/Coding Visit Charges Inpatient E&M: 32088 Init Hosp L3
[2024-02-14] MEDS: Azithromycin 500 MG in Dextrose 5%-Water (250mL Bag) 250 ML 250 MG IV (18:53)
[2024-02-14 19:19] LABS: Reflex Lactate? Y
[2024-02-14 20:16] LABS: Lactic Acid 1.7 mmol/L (0.4-1.9)
--- NOTE | 2024-02-14 21:15 | ECHOD_ITS ---
Reason For Study: TIA/STROKE Procedure This was a 2D Doppler, Color Flow transthoracic echocardiogram. Exam performed portable in patient room. Left Ventricle Normal LV size. The estimated ejection fraction is 65 %. No evidence for diastolic dysfunction. No regional wall motion abnormalities noted. Right Ventricle Normal RV size. Normal systolic function. Atria The left and right atria are normal. No doppler evidence for ASD. Bubble contrast study negative for right to left interatrial shunt. Mitral Valve There is no mitral valve stenosis. No mitral valve insufficiency. Tricuspid Valve There is no tricuspid stenosis. Unable to estimate RV systolic pressure due to inadequate jet, pulmonary artery pressure probably normal. Aortic Valve Trisinus/trileaflet aortic valve. There is no aortic stenosis. Mild (1+) aortic valve insufficiency. Pulmonic Valve There is no pulmonic valvular stenosis. No pulmonic valve insufficiency. Great Vessels Normal aortic root. Pericardium/Pleural Small pericardial effusion. Medication Performed a rapid injection of agitated mix of 9 cc saline and 1cc air to assess for atrial septal defect. MMode/2D Measurements & Calculations RVDd: 2.9 cm LVOT diam: 1.8 cm Ao root diam: 2.9 cm LVOT area: 2.4 cm2 asc Aorta Diam: 2.7 cm LAV(MOD-bp): 14.7 ml LVAd ap4: 14.7 cm2 LAV(MOD-bp) Indexed: 9.1 ml/m2 LVLd ap4: 6.1 cm LAV(MOD-sp2): 12.7 ml EDV(MOD-sp4): 30.7 ml LAV(MOD-sp4): 16.8 ml EDV(sp4-el): 29.9 ml LVAs ap4: 8.5 cm2 LVLs ap4: 4.6 cm ESV(MOD-sp4): 14.1 ml ESV(sp4-el): 13.2 ml EF(MOD-sp4): 54.2 % EF(sp4-el): 55.8 % SV(MOD-sp4): 16.6 ml SV(sp4-el): 16.7 ml LA A4 area: 9.0 cm2 RA A4 area: 7.2 cm2 Time Measurements MV dec time: 0.18 sec Doppler Measurements & Calculations MV E max chris: 62.9 cm/sec Lat Peak E' Chris: 5.8 cm/sec Med Peak E' Chris: 6.9 cm/sec MV A max chris: 80.4 cm/sec E/E' lat: 10.9 E/E' med: 9.2 MV E/A: 0.78 MV dec slope: 342.9 cm/sec2 Ao V2 max: 108.0 cm/sec LV V1 max: 113.3 cm/sec Ao max P.7 mmHg LV V1 max P.1 mmHg Ao V2 mean: 76.7 cm/sec LV V1 mean P.5 mmHg Ao mean P.6 mmHg LV V1 mean: 73.1 cm/sec Ao V2 VTI: 22.8 cm LV V1 VTI: 24.4 cm AV (velocity ratio): 1.1 LANCE(I,D): 2.6 cm2 LANCE(V,D): 2.6 cm2 SV(LVOT): 59.8 ml PA V2 max: 112.8 cm/sec PA max PG (full): 0.19 mmHg ECHO/Echo Complete Interpretation Summary The estimated ejection fraction is 65 %. No evidence for diastolic dysfunction. Mild (1+) aortic valve insufficiency. Small pericardial effusion. Ordering Physician: Jolene Wagoner Referring Physician: OLIVE GALVAN Performed By: Linda Sanchez and Student
[2024-02-14] MEDS: Lactobacillis Acidophilus 1 CAP PO (23:03)
[2024-02-14] MEDS: Creon 24,000 unit DR Capsule 2 CAP PO (23:03)
[2024-02-14] MEDS: busPIRone 5 MG Tablet 20 MG PO (23:03)
[2024-02-14] MEDS: Mirtazapine 15 MG Tablet PO (23:03)
[2024-02-14] MEDS: Aspirin 325 MG Tablet PO (23:03)
[2024-02-14] MEDS: Baclofen 10 MG Tablet PO (23:06)
[2024-02-14 23:32] LABS: Bedside Glucose 87 mg/dL (74-106)
[2024-02-15] VITALS (12 sets, daily range): BP systolic 87–149; BP diastolic 44–71; PULSE 63–81; RESP 16–18; TEMP 36.3–36.8; O2SAT 95–99; BMI 22.0
[2024-02-15] MEDS: ZONISAMIDE 100 MG CAPSULE 200 MG PO ×3 (00:05→21:52)
[2024-02-15] MEDS: Menthol/Lanolin/Calamine/Znox 113 GM Tube 1 APPLIC TOPICAL ×3 (00:05→20:48)
[2024-02-15] MEDS: Nystatin Powder 15gm Bottle 1 APPLIC TOPICAL ×2 (00:06→20:48)
[2024-02-15] MEDS: 0.9% Normal Saline (500mL Bag) 500 ML 999 ML IV (01:52)
[2024-02-15] MEDS: busPIRone 5 MG Tablet 20 MG PO ×3 (07:02→20:46)
[2024-02-15] MEDS: Levothyroxine 75 MCG Tablet PO (07:03)
[2024-02-15] MEDS: Ipratropium/Albuterol Sulfate 3 ML AMPUL.NEB INHALATION ×3 (07:19→19:30)
[2024-02-15 08:16] LABS: Absolute Neutrophil Count 6.1 X10^3/uL (2.0-7.7); Basophil% 1.1 % (0-1); Eosinophil# 0.33 X10^3/uL; Eosinophils% 3.7 % (0-5); Hematocrit 48.6 % (37-47); Hemoglobin 14.8 g/dL (12.0-15.0); Lymphocyte % 14.5 % (19-41); Mean Corp Hgb Conc 30.5 g/dL (32-36); Mean Corpuscular Hgb 29.1 pg (27.0-32.0); Mean Corpuscular Volume 95.7 fL (81-99); Monocyte# 0.71 X10^3/uL; Monocyte% 7.9 % (0-10); NRBC Flagged by Analyzer 0 % (0-5); Neutrophil # 6.08 X10^3/uL (2.7-7.7); Neutrophil % 68.1 % (47-70); POSITIVE MORPHOLOGY YES; Platelet Count 213 K/mm3 (150-450); RBC Distribution Width CV 25.5 % (11.6-14.6); RBC Distribution Width SD 86.4 fl (35.1-43.9); Red Blood Count 5.08 M/mm3 (4.2-5.4); White Blood Count 8.9 K/mm3 (4.4-11.0)
[2024-02-15 08:24] LABS: Differential Indicated SCAN CRITERIA MET
--- NOTE | 2024-02-15 08:33 | PN.HOSP_ITS ---
Reason for Visit Reason for Visit: Diagnoses Weakness (02/14/24) Subjective Subjective Still with right sided weakness. Asking for something for abdominal pain Objective Data Objective Data Vital Signs: Vital Signs Temp Pulse Resp BP Pulse Ox O2 Del Method 36.4 C L 63 16 118/55 L 95 Room Air 02/15/24 08:00 02/15/24 08:00 02/15/24 08:00 02/15/24 08:00 02/15/24 08:00 02/15/24 08:00 Oxygen Delivery Method Room Air Weight: 58.3 kg Body Mass Index (BMI) 22.0 Intake & Output: Intake and Output for Last 24 Hours 02/13/24 02/14/24 02/15/24 23:59 23:59 23:59 Intake Total 305 / 305 500 / 500 Output Total 400 / 400 Balance 305 / 305 100 / 100 Lab / Micro Data 02/15/24 07:03 02/15/24 07:03 Labs: Laboratory Results - last 24 hr 02/14/24 15:15: WBC 9.3, RBC 5.39, Hgb 15.6 H, Hct 50.3 H, MCV 93.3, MCH 28.9, M CHC 31.0 L, RDW Std Deviation 83.7 H, RDW Coeff of Hardy 25.4 H, Plt Count 214, MPV 9.9, Immature Gran % (Auto) 4.200 H, Neut % (Auto) 81.0 H, Lymph % (Auto) 6.6 L, [place] % (Auto) 6.7, Eos % (Auto) 1.2, Baso % (Auto) 0.3, Absolute Neuts (auto) 7.5, Absolute Lymphs (auto) 0.61 L, Nucleated RBC % 0, Differential Comment , Platelet Estimate ADEQUATE, Hypochromasia 1+, Anisocytosis 1+, Sodium 143, Potassium 4.6, Chloride 114 H, Carbon Dioxide 22.0, Anion Gap 6, BUN 20 H, Creatinine 0.85, Estim Creat Clear Calc 50.90, Est GFR (MDRD) Af Amer 85, Est GFR (MDRD) Non-Af 70, BUN/Creatinine Ratio 23.6 H, Glucose 155 H, Lactic Acid 2.0, Calcium 9.0, Total Bilirubin 0.20, AST 54 H, ALT 99 H, Alkaline Phosphatase 248 H, Troponin I High Sens 11, Total Protein 6.9, Albumin 3.0 L, Globulin 3.9, Albumin/Globulin Ratio 0.8 L, Lipase 27 02/14/24 16:45: Urine Color Yellow, Urine Clarity Sl Cldy, Urine pH 6.0, Ur Specific [place] 1.015, Urine Protein Negative, Urine Glucose (UA) Normal, Urine Ketones Negative, Urine Occult Blood 150 H, Urine Nitrite Negative, Urine Bilirubin Negative, Urine Urobilinogen Normal, Ur Leukocyte Esterase 100 H, Urine RBC 25-50 SEEN, Urine WBC 10-25 SEEN, Ur Squamous Epith Cells 5-10 SEEN, Ur Transition Epith Cell 0-5 SEEN, Ur Renal Epithelial Cell 0-5 SEEN, Urine Bacteria RARE, Urine Mucus 0 SEEN 02/14/24 19:34: Lactic Acid 1.7 02/14/24 22:53: POC Glucose 87 02/15/24 07:03: WBC 8.9, RBC 5.08, Hgb 14.8, Hct 48.6 H, MCV 95.7, MCH 29.1, M CHC 30.5 L, RDW Std Deviation 86.4 H, RDW Coeff of Hardy 25.5 H, Plt Count 213, MPV 10.0, Immature Gran % (Auto) 4.700 H, Neut % (Auto) 68.1, Lymph % (Auto) 14.5 L, [place] % (Auto) 7.9, Eos % (Auto) 3.7, Baso % (Auto) 1.1 H, Absolute Neuts (auto) 6.1, Absolute Lymphs (auto) 1.30, Nucleated RBC % 0 Radiography Diagnostic Testing: Radiology Impression Brain CT 02/14/24 14:57 IMPRESSION: Chronic involutional changes of the brain. Electronically Signed: Josr Schreiber MD at 15:31 EDT , Chest X-Ray 02/14/24 15:27 IMPRESSION: Left pleural effusion with left basilar infiltrate. Electronically Signed: Josr Schreiber MD at 15:43 EDT , Head/Neck CTA 02/14/24 17:40 IMPRESSION: Possible fibromuscular dysplasia at the distal segment of the cervical left internal carotid artery. Electronically Signed: Miguel Ángel Cool DO at 18:33 EDT Reading Location ID and State: [facility] / [place] Tel [phone], Service support , Physical Exam Const alert and no apparent distress HEENT head/scalp atraumatic and moist oral mucous membranes Resp normal respiratory effort and no retractions GI normal to inspection, nondistended, normoactive bowel sounds Extremity normal to inspection Neuro Neuro Narrative: MS 1/5 in RUE and RLE. 5/5 in LUE and LLE. diminished sensation in RUE and RLE. Psych affect normal Assessment & Plan Assessment/Plan (1) Right sided weakness: PLAN: Plan Suspected acute CVA * Right upper and lower extremity numbness and weakness * head CT and CTA showed no acute process. Noted fibromuscular dysplasia at distal segment of cervical LICA (previous physician dw vascular surgery, who advised outpt follow up) * Not amenable MRI given pain pump * Was not a candidate TNK given delayed presentation * CT head 24 hours later, echo, PT OT, * [facility] neurology suspects that this a CVA. Recommending 30-day event monitor and oupt follow up. Continue DAPT, statin. 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 * Pt asking for additional pain control. Pt already with pain pump. I reviewed her OARRS and it appears that she receives morphine for this through Dr. Nguyen. She told me she is on minimum settings for her pain pump and receives additional pain medication. I did not see any. Will utilize non- narcotics to assist pain. Follow up with Dr. Nguyen as outpt. Will schedule acetaminophen. No lidoderm given adhesive allergy Chronic conditions: * Chronic pancreatitis: * COPD-Patient on home inhalers, will continue-Had recent pneumonia which was treated, has not had any increased shortness of breath or change in cough so suspect chest x-ray findings may be residual from recent pneumonia-Given patient afebrile, no elevated white count, no increased shortness of breath, no worsening cough/significantly productive cough we will hold off on further IV antibiotics * Hx movement disorder-On deutetrabenazine-Continue if someone able to bring pt supply * Hypothyroidism-Continue Synthroid * GERD-Continue PPI * Gout-Continue allopurinol VTE prophylaxis: LMWH. Disposition: back to SNF, but will require insurance authorization. Charges/Coding Visit Charges Inpatient E&M: 28493 Subs Hosp L2
[2024-02-15] MEDS: Paroxetine 20 MG Tablet 40 MG PO (08:46)
[2024-02-15] MEDS: Creon 24,000 unit DR Capsule 2 CAP PO ×4 (08:46→20:46)
[2024-02-15] MEDS: Lactobacillis Acidophilus 1 CAP PO ×4 (08:46→20:47)
[2024-02-15] MEDS: Montelukast 10 MG Tablet PO (08:46)
[2024-02-15] MEDS: Ezetimibe 10 MG Tablet PO (08:46)
[2024-02-15] MEDS: Metoprolol(XL)Succ 25 MG Tablet PO (08:46)
[2024-02-15] MEDS: Clopidogrel Bisulfate 75 MG Tablet PO (08:47)
[2024-02-15] MEDS: Allopurinol 100 MG Tablet PO (08:47)
[2024-02-15] MEDS: Pantoprazole Sodium 40 MG Tablet PO (08:47)
[2024-02-15] MEDS: predniSONE 5 MG Tablet PO ×2 (08:47→16:00)
[2024-02-15] MEDS: Enoxaparin 40 MG/0.4 ML Syringe SC (08:47)
[2024-02-15] MEDS: Aspirin 81 MG TAB.CHEW PO (08:47)
[2024-02-15] MEDS: Fludrocortisone Acetate 0.1 MG Tablet PO (08:50)
[2024-02-15] MEDS: 0.9% Saline Lock 10 ML Syringe IV ×2 (08:55→20:52)
[2024-02-15] MEDS: Baclofen 10 MG Tablet PO ×2 (08:55→16:38)
[2024-02-15 09:06] LABS: Anisocytosis 1+
[2024-02-15 09:18] LABS: International Normalized Ratio 0.8; Prothrombin Time (Protime)PT. 11.5 SECONDS (11.7-14.9)
--- NOTE | 2024-02-15 09:52 | CASEMGMT ---
Patient is from [facility]. SW sent updates to them via [employer] inquiring if patient will require insurance authorization to return. Await response. Nelly DEJESUS
--- NOTE | 2024-02-15 10:16 | CASEMGMT ---
Patient will require insurance authorization to go back to [facility]. SW went to ask patient if her plan is to return, but she was being seen by another discipline. SW will check back. Plan: d/c back to [facility] pending pre-cert. Nelly Clark SERVICE MECHANIC ANJELICA
--- NOTE | 2024-02-15 10:21 | STROKE.CONS ---
Assessment and Plan: Stroke Assessment/Plan BERNADETTE EVERETT, is a 73 F w/ dm, chf, HTN, hld, hx of seizures, hxand pain pumps not compatible with MRI who presents with sudden onset right sided weakness and numbness. She states LKW was 11pm the night prior to admission and then woke up at 6am the day of admission with right sided weakness and numbness. CTH showing and old left MCA appearing stroke but nothing acute. CTA unrevealing. NIH for me 7 for right arm and leg only mild movement and right sensory loss. She has a hx of strokes in 2021 with same symptoms but recovered. Also states also had another stroke with bilateral symptoms. Does not know that causes of those strokes. Cannot get MRI due to pain pump. Likely this was a stroke. Management does not change as she is on ASA and plavix, cont statin, cont high intensity statin, cont cv risk factor optimization, recommend TTE (if normal can be dcd) and an event monitor for 30d at dc. FOllow up with PCP and neuro outpatient. No further recs at this time. Neuro to sign off. HPI Consult Data Date of Consult: 02/15/24 HPI Narrative HPI Narrative: BERNADETTE EVERETT, is a 73 F w/ dm, chf, HTN, hld, hx of seizures, hxand pain pumps not compatible with MRI who presents with sudden onset right sided weakness and numbness. She states LKW was 11pm the night prior to admission and then woke up at 6am the day of admission with right sided weakness and numbness. CTH showing and old left MCA appearing stroke but nothing acute. CTA unrevealing. NIH for me 7 for right arm and leg only mild movement and right sensory loss. She has a hx of strokes in 2021 with same symptoms but recovered. Also states also had another stroke with bilateral symptoms. Does not know that causes of those strokes. Cannot get MRI due to pain pump. Likely this was a stroke. Management does not change as she is on ASA and plavix, cont statin, cont high intensity statin, cont cv risk factor optimization, recommend TTE (if normal can be dcd) and an event monitor for 30d at dc. FOllow up with PCP and neuro outpatient. [facility] Medical History Depressed Dysphagia as late effect of cerebral aneurysm Gomez disease Foot drop, bilateral Fibromyalgia Asthma PTSD (post-traumatic stress disorder) T-cell lymphoma Insomnia Pancreatitis GERD (gastroesophageal reflux disease) Gout Anxiety Anemia Hypothyroidism Essential hypertension CHF (congestive heart failure) Convulsion Type II diabetes mellitus Chronic kidney disease Cognitive communication deficit Hypokalemia Bacteremia Difficulty walking Weakness Pneumonia Sepsis Home Medications ?Medication ?Instructions ?Recorded ?Last Taken ?Type Lactobacillus rhamnosus GG 15 1 cap PO 4X/DAY 02/14/24 02/13/24 History billion cell sprinkle capsule (Culturelle) acetaminophen 325 mg tablet 650 mg PO Q4H PRN pain 02/14/24 02/05/24 History allopurinol 100 mg tablet 100 mg PO DAILY 02/14/24 02/13/24 History aspirin 81 mg tablet,delayed 81 mg PO DAILY 02/14/24 02/13/24 History release baclofen 10 mg tablet 10 mg PO Q8H PRN muscle spasm 02/14/24 02/13/24 History buspirone 10 mg tablet 20 mg PO TID 02/14/24 02/13/24 History clopidogrel 75 mg tablet 75 mg PO DAILY 02/14/24 02/13/24 History deutetrabenazine 12 mg tablet 12 mg PO BID 02/14/24 02/13/24 History (Austedo) docusate sodium 100 mg capsule 100 mg PO DAILY 02/14/24 02/13/24 History ergocalciferol (vitamin D2) 1,250 1,250 mcg PO WE 02/14/24 02/12/24 History mcg (50,000 unit) capsule ezetimibe 10 mg tablet 10 mg PO DAILY 02/14/24 02/13/24 History fludrocortisone 0.1 mg tablet 0.1 mg PO DAILY 02/14/24 02/12/24 History ipratropium 20 mcg-albuterol 100 1 puff inhalation 4X/DAY 02/14/24 02/13/24 History mcg/actuation mist for inhalation (Combivent Respimat) levothyroxine 75 mcg tablet 75 mcg PO DAILY 02/14/24 02/13/24 History yihxvs-jwqlvdyq-qlijmin 2 cap PO 4X/DAY 02/14/24 02/13/24 History 24,000-76,000-120,000 unit capsule,delayed rel (Creon) loperamide 2 mg tablet 2 mg PO Q6H PRN loose stool 02/14/24 02/06/24 History lubiprostone 24 mcg capsule 24 mcg PO BID 02/14/24 02/13/24 History melatonin 5 mg tablet 5 mg PO DAILY 02/14/24 02/13/24 History metoprolol succinate 100 mg 100 mg PO DAILY 02/14/24 02/13/24 History tablet,extended release 24 hr mirtazapine 15 mg tablet 15 mg PO QHS 02/14/24 02/13/24 History montelukast 10 mg tablet 10 mg PO DAILY 02/14/24 02/13/24 History multivitamin (Daily Multi-Vitamin 1 tab PO DAILY 02/14/24 02/13/24 History tablet) nitroglycerin 0.3 mg sublingual 0.3 mg sublingual Q5M PRN chest 02/14/24 02/13/24 History tablet pain ondansetron 4 mg disintegrating 4 mg PO Q6H 02/14/24 02/06/24 History tablet pantoprazole 40 mg tablet,delayed 40 mg PO DAILY 02/14/24 02/13/24 History release paroxetine HCl 40 mg tablet 40 mg PO DAILY 02/14/24 02/13/24 History potassium chloride 20 mEq 20 meq PO DAILY 02/14/24 02/13/24 History tablet,extended release(part/cryst) prednisone 5 mg tablet 5 mg PO BID 02/14/24 02/13/24 History sennosides 8.6 mg-docusate sodium 1 tab-cap PO BID PRN constipation 02/14/24 02/14/24 History 50 mg tablet (Senna with Docusate Sodium) zonisamide 100 mg capsule 200 mg PO BID 02/14/24 02/14/24 History Allergy/AdvReac Type Severity Reaction Status Date / Time codeine Allergy Intermediate Nausea/Vom/ Verified 02/14/24 22:34 Diarrhea hydrocodone Allergy Intermediate Nausea Verified 02/14/24 22:34 adhesive tape Allergy Mild Hives Verified 02/14/24 22:34 furosemide (From Lasix) Allergy NEEDS Verified 02/14/24 22:34 FOLLOW-UP pregabalin (From Lyrica) Allergy NEEDS Verified 02/14/24 22:34 FOLLOW-UP celecoxib AdvReac Intermediate Nausea Verified 02/14/24 22:34 oxycodone AdvReac Intermediate Nausea Verified 02/14/24 22:34 lansoprazole AdvReac Nausea Verified 02/14/24 22:34 meloxicam AdvReac Nausea Verified 02/14/24 22:34 mirtazapine AdvReac Nausea Verified 02/14/24 22:34 naloxone (From John NX) AdvReac Nausea Verified 02/14/24 22:34 pentazocine AdvReac Nausea Verified 02/14/24 22:34 rofecoxib AdvReac Nausea Verified 02/14/24 22:34 Social History Smoking Status: Never smoker Vital Signs Vital Signs Vital Signs: 02/14/24 14:53 02/14/24 15:51 02/14/24 16:00 Temperature 97.4 F L Temperature Source Oral Pulse Rate 72 65 65 Respiratory Rate 20 H 16 16 Respiratory Effort Respiratory Depth Respiratory Pattern Blood Pressure 137/65 H 129/70 H 129/70 H Blood Pressure Mean 89 89 89 Blood Pressure Source Blood Pressure Position Blood Pressure Location Pulse Ox 97 96 96 Oxygen Delivery Method Room Air Room Air Room Air 02/14/24 16:22 02/14/24 17:00 02/14/24 17:19 Temperature 98.9 F Temperature Source Pulse Rate 72 72 Respiratory Rate 19 H 19 H Respiratory Effort Normal Non-Labored Respiratory Depth Respiratory Pattern Normal Blood Pressure 110/59 L 119/79 Blood Pressure Mean 76 92 Blood Pressure Source Blood Pressure Position Blood Pressure Location Pulse Ox 97 96 Oxygen Delivery Method Room Air 02/14/24 17:30 02/14/24 18:00 02/14/24 18:30 Temperature 98.9 F 98.5 F Temperature Source Oral Oral Pulse Rate 75 79 74 Respiratory Rate 17 20 H 18 Respiratory Effort Respiratory Depth Respiratory Pattern Blood Pressure 129/60 H 121/54 H 136/59 H Blood Pressure Mean 83 76 84 Blood Pressure Source Blood Pressure Position Blood Pressure Location Pulse Ox 97 98 97 Oxygen Delivery Method Room Air Room Air Room Air 02/14/24 20:02 02/14/24 22:00 02/14/24 22:55 Temperature 98 F Temperature Source Oral Pulse Rate 88 Respiratory Rate 17 Respiratory Effort Normal Non-Labored Respiratory Depth Normal Respiratory Pattern Normal Blood Pressure 135/58 H Blood Pressure Mean 83 Blood Pressure Source Monitor Blood Pressure Position Semi-Fowlers Blood Pressure Location Left Arm Pulse Ox 95 96 Oxygen Delivery Method Room Air Room Air Room Air 02/15/24 00:15 02/15/24 00:20 02/15/24 03:13 Temperature 97.7 F L Temperature Source Oral Pulse Rate 74 73 Respiratory Rate 18 Respiratory Effort Normal Non-Labored Respiratory Depth Normal Respiratory Pattern Normal Blood Pressure 87/48 L 146/71 H Blood Pressure Mean 61 96 Blood Pressure Source Monitor Blood Pressure Position Semi-Fowlers Blood Pressure Location Left Arm Pulse Ox 96 95 Oxygen Delivery Method Room Air Room Air Room Air 02/15/24 04:00 02/15/24 04:00 02/15/24 07:20 Temperature 97.4 F L 97.4 F L Temperature Source Oral Oral Pulse Rate 65 65 75 Respiratory Rate 17 17 18 Respiratory Effort Respiratory Depth Respiratory Pattern Normal Blood Pressure 149/58 H 149/58 H Blood Pressure Mean 88 88 Blood Pressure Source Monitor Blood Pressure Position Semi-Fowlers Blood Pressure Location Left Arm Pulse Ox 98 98 Oxygen Delivery Method Room Air Room Air 02/15/24 07:20 02/15/24 08:00 02/15/24 08:24 Temperature 97.6 F L Temperature Source Oral Pulse Rate 63 Respiratory Rate 16 Respiratory Effort Normal Non-Labored Respiratory Depth Normal Respiratory Pattern Normal Blood Pressure 118/55 L Blood Pressure Mean 76 Blood Pressure Source Monitor Blood Pressure Position Semi-Fowlers Blood Pressure Location Left Arm Pulse Ox 99 95 Oxygen Delivery Method Room Air Room Air Room Air 02/15/24 08:46 Temperature Temperature Source Pulse Rate 63 Respiratory Rate Respiratory Effort Respiratory Depth Respiratory Pattern Blood Pressure 118/55 L Blood Pressure Mean Blood Pressure Source Blood Pressure Position Blood Pressure Location Pulse Ox Oxygen Delivery Method Weight Weight: 58.3 kg Body Mass Index (BMI) 22.0 NIHSS NIHSS Nursing Documentation NIHSS Nursing Documentation: NIHSS: Ischemic Stroke/TIA Start: 02/14/24 21:30 Text: For PCU Patients: NIH and Neuro Check every 4 Status: Active hours, PRN and with change in RN caregiver. Freq: [id number] Protocol: Activity Type Activity Date Activity User E-sign Co-sign Detail Recorded Client Recorded Date Recorded By Document 02/15/24 08:00 SS desktop 02/15/24 08:16 SS 02/15/24 08:00 NIH Stroke Scale [NIHSS] A score of 0 is normal or asymptomatic . Total possible score is 42. Inpatient: RN or Physician to activate a stroke alert for onset of new stroke symptoms or with NIHSS increase >/= 3 points. Following change in neurological status, NIHSS will be performed per physician order or more frequently PRN. -1a. Level of Consciousness Alert; keenly responsive -1b. LOC Questions Answers BOTH questions correctly. -1c. LOC Commands Performs both tasks correctly . -2. Best Gaze Normal -3. Visual No visual loss -4. Facial Palsy Minor paralysis (flattened nasolabial fold , asymmetry on smiling) -5a. Left Arm No drift; arm holds 90 (or 45 ) degrees for full 10 seconds -5b. Right Arm Some effort against gravity ; -6a. Left Leg No drift; leg holds 30-degree position for full 5 seconds -6b. Right Leg No effort against gravity ; leg falls to bed immediately -7. Limb Ataxia Present in 2 limbs -8. Sensory Mild-to- moderate sensory loss; -9. Best Language No aphasia; normal -10. Dysarthria Mild-to- moderate dysarthria; -11. Extinction and Inattention No abnormality -Total 10 Query Text:A score of 0 is normal or asymptomatic. Total possible score is 42 . ED: Notify Physician for NIHSS increase by > / = 3 points. Inpatient: RN or Physician to activate a stroke alert for NIHSS increase of > / = 3 points. Coma Scale [Assess] -Eye Opening Spontaneous -Motor Obeys Commands -Verbal Oriented [Total] -Coma Scale Total 15 Physical Exam Narrative Physical Exam: - General: NAD, pleasant, cooperative, well nourished, well developed - Head/Eyes: Atraumatic, normocephalic, clear cornea, normal sclera/conjunctive - Neuro: ? Mental Status: AAOX4 & following simple commands. ? Speech: Clear and fluent with good repetition, comprehension, & naming. No aphasia or dysarthria ? CN III, IV, : EOMI, no gaze preference, no nystagmus, no ptosis ? CN V: Facial sensation is intact to light touch throughout. ? CN VII: Face is symmetric with normal eye closure and smile. ? CN VII: Hearing is grossly normal to conversational speech. ? Right side only mild movement,no antigravity, left side completely fine ? Sensation dec on right side ? Coordination fine on left, right cannot be tested. Lab / Micro Data 02/15/24 07:03 02/15/24 07:03 Labs: Laboratory Results - last 24 hr 02/14/24 15:15: WBC 9.3, RBC 5.39, Hgb 15.6 H, Hct 50.3 H, MCV 93.3, MCH 28.9, MCHC 31.0 L, RDW Std Deviation 83.7 H, RDW Coeff of Hardy 25.4 H, Plt Count 214, MPV 9.9, Immature Gran % (Auto) 4.200 H, Neut % (Auto) 81.0 H, Lymph % (Auto) 6.6 L, Ripley % (Auto) 6.7, Eos % (Auto) 1.2, Baso % (Auto) 0.3, Absolute Neuts (auto) 7.5, Absolute Lymphs (auto) 0.61 L, Nucleated RBC % 0, Differential Comment , Platelet Estimate ADEQUATE, Hypochromasia 1+, Anisocytosis 1+, Sodium 143, Potassium 4.6, Chloride 114 H, Carbon Dioxide 22.0, Anion Gap 6, BUN 20 H, Creatinine 0.85, Estim Creat Clear Calc 50.90, Est GFR (MDRD) Af Amer 85, Est GFR (MDRD) Non-Af 70, BUN/Creatinine Ratio 23.6 H, Glucose 155 H, Lactic Acid 2.0, Calcium 9.0, Total Bilirubin 0.20, AST 54 H, ALT 99 H, Alkaline Phosphatase 248 H, Troponin I High Sens 11, Total Protein 6.9, Albumin 3.0 L, Globulin 3.9, Albumin/Globulin Ratio 0.8 L, Lipase 27 02/14/24 16:45: Urine Color Yellow, Urine Clarity Sl Cldy, Urine pH 6.0, Ur Specific [place] 1.015, Urine Protein Negative, Urine Glucose (UA) Normal, Urine Ketones Negative, Urine Occult Blood 150 H, Urine Nitrite Negative, Urine Bilirubin Negative, Urine Urobilinogen Normal, Ur Leukocyte Esterase 100 H, Urine RBC 25-50 SEEN, Urine WBC 10-25 SEEN, Ur Squamous Epith Cells 5-10 SEEN, Ur Transition Epith Cell 0-5 SEEN, Ur Renal Epithelial Cell 0-5 SEEN, Urine Bacteria RARE, Urine Mucus 0 SEEN 02/14/24 19:34: Lactic Acid 1.7 02/14/24 22:53: POC Glucose 87 02/15/24 07:03: WBC 8.9, RBC 5.08, Hgb 14.8, Hct 48.6 H, MCV 95.7, MCH 29.1, MCHC 30.5 L, RDW Std Deviation 86.4 H, RDW Coeff of Hardy 25.5 H, Plt Count 213, MPV 10.0, Immature Gran % (Auto) 4.700 H, Neut % (Auto) 68.1, Lymph % (Auto) 14.5 L, Ripley % (Auto) 7.9, Eos % (Auto) 3.7, Baso % (Auto) 1.1 H, Absolute Neuts (auto) 6.1, Absolute Lymphs (auto) 1.30, Nucleated RBC % 0, Anisocytosis 1+, PT 11.5 L, INR 0.8 Imaging Radiology Impression Brain CT 02/14/24 14:57 IMPRESSION: Chronic involutional changes of the brain. Electronically Signed: Josr Schreiber MD at 15:31 EDT , Chest X-Ray 02/14/24 15:27 IMPRESSION: Left pleural effusion with left basilar infiltrate. Electronically Signed: Josr Schreiber MD at 15:43 EDT , Head/Neck CTA 02/14/24 17:40 IMPRESSION: Possible fibromuscular dysplasia at the distal segment of the cervical left internal carotid artery. Electronically Signed: Miguel Ángel Cool DO at 18:33 EDT , Active Medications Active Medications Active Medications: Current Medications Generic Name Dose Route Start Last Admin Trade Name Freq PRN Reason Stop Dose Admin Acetaminophen 650 mg 02/14/24 21:30 Acetaminophen 325 Mg Tablet PO Q6H PRN PRN Pain 1-10 Or Fever >100.7 Albuterol Sulfate 2.5 mg 02/14/24 21:30 Albuterol 2.5 Mg/3 Ml Vial.Neb. INHALATION Q2H PRN PRN SOB &/OR WHEEZING Albuterol/Ipratropium 3 ml 02/15/24 00:00 02/15/24 07:19 Ipratropium/Albuterol Sulfate 3 Ml Ampul.Neb INHALATION 3 ml Q6HWA.RT RACHEL Administration Allopurinol 100 mg 02/15/24 08:00 02/15/24 08:47 Allopurinol 100 Mg Tablet PO 100 mg DAILYCM RACHEL Administration Aspirin 81 mg 02/15/24 08:00 02/15/24 08:47 Aspirin 81 Mg Tab.Chew PO 81 mg BREAKFAST RACHEL Administration Atorvastatin Calcium 80 mg 02/14/24 22:00 02/14/24 22:50 Atorvastatin Calcium 80 Mg Tablet PO Not Given QHS RACHEL Baclofen 10 mg 02/14/24 21:45 02/15/24 08:55 Baclofen 10 Mg Tablet PO 10 mg Q8H PRN PRN Administration muscle spasm Buspirone HCl 20 mg 02/14/24 22:00 02/15/24 07:02 Buspirone 5 Mg Tablet PO 20 mg TID RACHEL Administration Calamine/Phenol 1 applic 02/14/24 22:40 02/15/24 08:47 Menthol/Lanolin/Calamine/Znox 113 Gm Tube TOPICAL 1 applic BID RACHEL Administration Protocol Clopidogrel Bisulfate 75 mg 02/15/24 10:00 02/15/24 08:47 Clopidogrel Bisulfate 75 Mg Tablet PO 75 mg DAILY RACHEL Administration Docusate Sodium 100 mg 02/15/24 10:00 02/15/24 08:51 Docusate Sodium 100 Mg Capsule PO Not Given DAILY RACHEL Ezetimibe 10 mg 02/15/24 10:00 02/15/24 08:46 Ezetimibe 10 Mg Tablet PO 10 mg DAILY RACHEL Administration Enoxaparin Sodium 40 mg 02/15/24 10:00 02/15/24 08:47 Enoxaparin 40 Mg/0.4 Ml Syringe SC 40 mg DAILY RACHEL Administration Fludrocortisone Acetate 0.1 mg 02/15/24 08:00 02/15/24 08:50 Fludrocortisone Acetate 0.1 Mg Tablet PO 0.1 mg DAILYCM RACHEL Administration Hydralazine HCl 5 mg 02/14/24 21:30 Hydralazine 20 Mg/Ml Vial IV 02/15/24 21:31 Q30M PRN maintain BP parameters with HR <60 Sodium Chloride 100 mls @ 15 mls/hr 02/14/24 20:23 IV .Q6H40M PRN Saline Flush Sodium Chloride 100 mls @ 15 mls/hr 02/14/24 20:23 IV .Q6H40M PRN Additional IVPB Infusion Labetalol HCl 10 - 20 mg 02/14/24 21:30 Labetalol (Prefilled) 20 Mg/4 Ml Vial IV 02/15/24 21:31 Q10M PRN PRN maintain BP parameters with HR >/=60 Levothyroxine Sodium 75 mcg 02/15/24 06:00 02/15/24 07:03 Levothyroxine 75 Mcg Tablet PO 75 mcg 0600 RACHEL Administration Melatonin 3 mg 02/14/24 21:30 Melatonin 3 Mg Tablet PO QHS PRN PRN INSOMNIA Metoprolol Succinate 25 mg 02/15/24 10:00 02/15/24 08:46 Metoprolol(Xl)Succ 25 Mg Tablet PO 25 mg DAILY RACHEL Administration Protocol Mirtazapine 15 mg 02/14/24 22:00 02/14/24 23:03 Mirtazapine 15 Mg Tablet PO 15 mg QHS RACHEL Administration Montelukast Sodium 10 mg 02/15/24 10:00 02/15/24 08:46 Montelukast 10 Mg Tablet PO 10 mg DAILY RACHEL Administration Non-Formulary Medication 12 mg 02/14/24 22:00 Deutetrabenazine [Austedo] PO BID RACHEL Non-Formulary Medication 24 mcg 02/14/24 22:00 Lubiprostone PO BID RACHEL Nystatin 1 applic 02/15/24 10:00 02/15/24 00:06 Nystatin Powder 15gm Bottle TOPICAL 1 applic BID RACHEL Administration Protocol Ondansetron HCl 4 mg 02/14/24 21:30 Ondansetron 4 Mg/2 Ml Vial IV Q8H PRN PRN NAUSEA/VOMITING Pancrelipase 2 cap 02/14/24 22:00 02/15/24 08:[address] Creon [address] Capsule PO 2 cap 4X/DAY RACHEL Administration Pantoprazole Sodium 40 mg 02/15/24 10:00 02/15/24 08:47 Pantoprazole Sodium 40 Mg Tablet PO 40 mg DAILY RACHEL Administration Paroxetine HCl 40 mg 02/15/24 10:00 02/15/24 08:46 Paroxetine 20 Mg Tablet PO 40 mg DAILY RACHEL Administration Prednisone 5 mg 02/15/24 08:00 02/15/24 08:47 Prednisone 5 Mg Tablet PO 5 mg BIDCM RACHEL Administration Senna/Docusate Sodium 2 tablet 02/14/24 21:30 Senna/Docusate Sodium 1 Tablet PO BID PRN PRN Constipation Sodium Chloride 10 - 40 ml 02/14/24 20:23 02/15/24 08:55 0.9% Saline Lock 10 Ml Syringe IV 10 ml UD PRN Administration SALINE FLUSH Zonisamide 200 mg 02/14/24 22:00 02/15/24 08:46 Zonisamide 100 Mg Capsule PO 200 mg BID RACHEL Administration
[2024-02-15 10:46] LABS: Anion Gap 4 (5-15); BUN 18 mg/dL (7-18); BUN/Creat Ratio 25.8 RATIO (10-20); Calcium,Total 8.4 mg/dL (8.5-10.1); Chloride 112 mmol/L (98-107); Cholesterol 211 mg/dL (200); EST Glomerular Filtration Rate 87 mL/min (>60); Est Glom Filt Rate - Afr Amer 106 mL/min (>60); Estimated Creatinine Clearance 54.08 ml/min; Glucose 74 mg/dL (74-106); High Density Lipoprotein 54 mg/dL; Magnesium 2.4 mg/dL (1.6-2.6); Potassium 3.6 mmol/L (3.5-5.1); Sodium Level 140 mmol/L (136-145); Triglycerides 190 mg/dL; Very Low Density Lipoprotein 38 mg/dL (5-40)
--- NOTE | 2024-02-15 12:46 | CASEMGMT ---
SW completed a PHQ 9 with patient as she likely had a Stroke. Patient scored a 1 which indicates minimal depression. Patient denied need for any counseling resources. Nelly DEJESUS
--- NOTE | 2024-02-15 12:48 | CASEMGMT ---
MIKAYLA spoke with patient and confirmed her plan is to return to [facility] at discharge. Patient was concerned as she said the facility told her friend they canceled her insurance. MIKAYLA explained that whenever someone leaves the correction for a certain amount of time the insurance requires a new authorization. MIKAYLA told patient this is normal and she should have nothing to worry about. Patient thanked MIKAYLA for clearing that up. MIKAYLA will send PT/OT/ST once available so the facility can start pre-cert. Plan: d/c back to [facility] pending pre-cert. Nelly Clark [employer]ER ANJELICA
--- NOTE | 2024-02-15 14:00 | CT_ITS ---
STUDY: CT BRAIN WITHOUT CONTRAST REASON FOR EXAM: Female, 73 years old. CVA f/u 24 hrs RADIATION DOSAGE (If Supplied By Facility): CTDIvol = ( 44.99 ) mGy, DLP = ( 796.11 ) mGycm TECHNIQUE: Transaxial CT imaging of the brain was performed without administration of intravenous contrast material. Individualized dose optimization techniques were used for this CT. COMPARISON: Head CT dated February 14, 2024 FINDINGS: No visualized new area of sulcal effacement or hemorrhagic transformation. No visualized dense artery sign. No extra-axial fluid collection or midline shift or hydrocephalus is present. Late subacute to chronic infarct with volume loss and chronic hypodensity noted at the superior aspect of the left frontoparietal junction. Normal soft tissue structures. Normal calvarium. There is moderate cerebral atrophy with widening of the extra-axial spaces and ventricular dilatation. There are moderate areas of decreased attenuation within the white matter tracts of the supratentorial brain, consistent with microvascular disease changes. Normal basal ganglia and thalami. Normal brainstem. Normal cerebellum. There is no intracranial hemorrhage. There are no findings of an acute ischemic infarction. Normal visualized paranasal sinuses. CT/Brain/Head without Contrast IMPRESSION: 1. Chronic ischemic and involutional changes of the brain. Electronically Signed: Mandeep Rivera MD at 15:49 EDT ,
--- NOTE | 2024-02-15 14:37 | CASEMGMT ---
[facility]. [facility] insurance approval. Nelly DEJESUS
[2024-02-15] MEDS: Acetaminophen 500 MG Tablet 1000 MG PO ×2 (15:59→20:46)
--- NOTE | 2024-02-15 16:08 | CASEMGMT ---
RUBEN CM in to complete LARSEN form with patient. RUBEN SHEIKH explained LARSEN form to patient, patient voiced understanding. Patient signed LARSEN form and filed in chart. Patient provided copy of signed LARSEN form. Patient had no further questions or concerns.
[2024-02-15] MEDS: Mirtazapine 15 MG Tablet PO (20:46)
[2024-02-15] MEDS: Atorvastatin Calcium 80 MG Tablet PO (20:47)
[2024-02-16] VITALS (10 sets, daily range): BP systolic 120–155; BP diastolic 57–70; PULSE 63–86; RESP 16–18; TEMP 36.2–36.7; O2SAT 95–99; BMI 22.0
[2024-02-16] MEDS: MELATONIN 3 MG TABLET PO (00:44)
[2024-02-16] MEDS: Baclofen 10 MG Tablet PO ×3 (00:44→20:24)
--- NOTE | 2024-02-16 04:32 | CT_ITS ---
EXAM: CT HEAD WITHOUT INTRAVENOUS CONTRAST CLINICAL INDICATION: Lethargy, Mental Status Change TECHNIQUE: Multiple axial images were obtained of the head without intravenous contrast. This CT exam was performed using one or more of the following dose reduction techniques: automated exposure control, adjustment of the mA and/or kV according to patient size, and/or use of iterative reconstruction technique. RADIATION DOSE: Total DLP: 812.98 mGy-cm. COMPARISON: Cranial CT of 02/15/2024 and 02/14/2024. FINDINGS: BRAIN AND EXTRA-AXIAL SPACES: The previously noted findings of atrophy and patchy chronic small vessel ischemic changes are again demonstrated. Asymmetric hypodensity at the superior left frontoparietal junction is again noted, extending from the centrum semiovale into the cortex is again noted, with stable ex vacuo enlargement of an adjacent sulcus, consistent with encephalomalacia from old infarction. No intra- or extra-axial hemorrhage. No intracranial mass or mass effect. Posterior fossa structures are unremarkable. Basal cisterns are patent. BONES/JOINTS: Unremarkable. No discrete lytic or blastic abnormalities. VASCULATURE: Atherosclerotic vascular calcification is present. The middle cerebral arteries are not hyperdense. SINUSES: Unremarkable as visualized. Clear. MASTOID AIR CELLS: Unremarkable. Clear. ORBITS: Previous cataract extraction. CT/Brain/Head without Contrast IMPRESSION: No significant interval change. No acute findings in the head/brain. Electronically Signed: Lon Carmona MD at 5:19 EDT ,
[2024-02-16 05:35] LABS: Bedside Glucose 113 mg/dL (74-106)
[2024-02-16] MEDS: Levothyroxine 75 MCG Tablet PO (06:20)
[2024-02-16] MEDS: Acetaminophen 500 MG Tablet 1000 MG PO ×3 (06:20→20:25)
[2024-02-16] MEDS: busPIRone 5 MG Tablet 20 MG PO ×3 (06:21→20:27)
[2024-02-16] MEDS: Ipratropium/Albuterol Sulfate 3 ML AMPUL.NEB INHALATION ×3 (06:41→18:48)
--- NOTE | 2024-02-16 08:27 | PN.HOSP_ITS ---
Reason for Visit Reason for Visit: Diagnoses Weakness (02/14/24) Subjective Subjective States that she is NPO. I reviewed her orders and she was not NPO. She states that she has been having abdominal pain for months not effectively managed with her pain pump, but has not tolerated oral medications in the past. Improved weakness on right side. Objective Data Objective Data Vital Signs: Vital Signs Temp Pulse Resp BP Pulse Ox O2 Del Method 36.3 C L 71 16 136/68 H 99 Room Air 02/16/24 08:00 02/16/24 08:00 02/16/24 08:00 02/16/24 08:00 02/16/24 08:00 02/16/24 08:00 Oxygen Delivery Method Room Air Weight: 58.3 kg Body Mass Index (BMI) 22.0 Intake & Output: Intake and Output for Last 24 Hours 02/14/24 02/15/24 02/16/24 23:59 23:59 23:59 Intake Total 305 / 305 800 / 800 0 / 0 Output Total 825 / 825 200 / 200 Balance 305 / 305 -25 / -25 -200 / -200 Lab / Micro Data 02/15/24 07:03 02/15/24 07:03 Labs: Laboratory Results - last 24 hr 02/15/24 07:03: Anisocytosis 1+, PT 11.5 L, INR 0.8, Sodium 140, Potassium 3.6, Chloride 112 H, Carbon Dioxide 24.0, Anion Gap 4 L, BUN 18, Creatinine 0.70, Estim Creat Clear Calc 54.08, Est GFR (MDRD) Af Amer 106, Est GFR (MDRD) Non-Af 87, BUN/Creatinine Ratio 25.8 H, Glucose 74, Calcium 8.4 L, Magnesium 2.4, Triglycerides 190, Cholesterol 211 H, LDL Cholesterol 119, VLDL Cholesterol 38, HDL Cholesterol 54, TSH 3.360 02/16/24 05:17: POC Glucose 113 H Radiography Diagnostic Testing: Radiology Impression Brain CT 02/15/24 14:00 IMPRESSION: 1. Chronic ischemic and involutional changes of the brain. Electronically Signed: Mandeep Rivera MD at 15:49 EDT , Brain CT 02/16/24 04:32 IMPRESSION: No significant interval change. No acute findings in the head/brain. Electronically Signed: Lon Carmona MD at 5:19 EDT , Physical Exam Const alert and no apparent distress HEENT head/scalp atraumatic and moist oral mucous membranes Resp normal respiratory effort and no retractions Extremity normal to inspection Neuro Neuro Narrative: MS 4/5 in RUE and RLE. Sensation intact bilaterally and equal. Psych affect normal Assessment & Plan Assessment/Plan (1) Right sided weakness: PLAN: Plan acute CVA * Right upper and lower extremity numbness and weakness * head CT and CTA showed no acute process. Noted fibromuscular dysplasia at distal segment of cervical LICA (previous physician dw vascular surgery, who advised outpt follow up) * Not amenable MRI given pain pump * Was not a candidate TNK given delayed presentation * Repeat head CT showed no acute process. * [facility] neurology suspects that this a CVA. Recommending 30-day event monitor and oupt follow up. Continue DAPT, statin. Follow up with neurology as outpt. 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 * Pt asking for additional pain control. Pt already with pain pump. I reviewed her OARRS and it appears that she receives morphine for this through Dr. Nguyen. She told me she is on minimum settings for her pain pump and receives additional pain medication. I did not see any. Will utilize non- narcotics to assist pain. Follow up with Dr. Nguyen as outpt. Will schedule acetaminophen. No lidoderm given adhesive allergy. 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 Disposition: back to SNF, but will require insurance authorization. Charges/Coding Visit Charges Inpatient E&M: 89149 Subs Hosp L2
[2024-02-16] MEDS: Clopidogrel Bisulfate 75 MG Tablet PO (11:17)
[2024-02-16] MEDS: Lactobacillis Acidophilus 1 CAP PO ×4 (11:17→20:27)
[2024-02-16] MEDS: Montelukast 10 MG Tablet PO (11:17)
[2024-02-16] MEDS: Metoprolol(XL)Succ 25 MG Tablet PO (11:17)
[2024-02-16] MEDS: predniSONE 5 MG Tablet PO ×2 (11:17→18:52)
[2024-02-16] MEDS: Creon 24,000 unit DR Capsule 2 CAP PO ×4 (11:17→20:26)
[2024-02-16] MEDS: Paroxetine 20 MG Tablet 40 MG PO (11:18)
[2024-02-16] MEDS: Pantoprazole Sodium 40 MG Tablet PO (11:18)
[2024-02-16] MEDS: Ezetimibe 10 MG Tablet PO (11:18)
[2024-02-16] MEDS: Aspirin 81 MG TAB.CHEW PO (11:18)
[2024-02-16] MEDS: Allopurinol 100 MG Tablet PO (11:18)
[2024-02-16] MEDS: Enoxaparin 40 MG/0.4 ML Syringe SC (11:19)
[2024-02-16] MEDS: Menthol/Lanolin/Calamine/Znox 113 GM Tube 1 APPLIC TOPICAL ×2 (11:19→20:30)
[2024-02-16] MEDS: Nystatin Powder 15gm Bottle 1 APPLIC TOPICAL ×2 (11:19→20:29)
[2024-02-16] MEDS: ZONISAMIDE 100 MG CAPSULE 200 MG PO ×2 (14:20→20:27)
[2024-02-16] MEDS: 0.9% Saline Lock 10 ML Syringe IV (20:24)
[2024-02-16] MEDS: Senna/Docusate Sodium 1 Tablet 2 TABLET PO (20:25)
[2024-02-16] MEDS: Atorvastatin Calcium 80 MG Tablet PO (20:26)
[2024-02-16] MEDS: Mirtazapine 15 MG Tablet PO (20:26)
[2024-02-16] MEDS: Lubiprostone 24 MCG Capsule PO (20:28)
[2024-02-17] VITALS (8 sets, daily range): BP systolic 117–170; BP diastolic 51–100; PULSE 65–80; RESP 16–18; TEMP 36.6–37.1; O2SAT 95–100; BMI 22.0
[2024-02-17] MEDS: Acetaminophen 500 MG Tablet 1000 MG PO ×3 (05:09→20:43)
[2024-02-17] MEDS: busPIRone 5 MG Tablet 20 MG PO ×3 (05:10→20:39)
[2024-02-17] MEDS: Levothyroxine 75 MCG Tablet PO (05:10)
[2024-02-17] MEDS: Metoprolol(XL)Succ 25 MG Tablet PO (05:51)
[2024-02-17] MEDS: Ipratropium/Albuterol Sulfate 3 ML AMPUL.NEB INHALATION ×2 (07:16→20:52)
[2024-02-17] MEDS: Creon 24,000 unit DR Capsule 2 CAP PO ×4 (09:09→20:40)
[2024-02-17] MEDS: Paroxetine 20 MG Tablet 40 MG PO (09:09)
[2024-02-17] MEDS: Baclofen 10 MG Tablet PO ×2 (09:09→20:37)
[2024-02-17] MEDS: Ezetimibe 10 MG Tablet PO (09:10)
[2024-02-17] MEDS: Lactobacillis Acidophilus 1 CAP PO ×4 (09:10→20:37)
[2024-02-17] MEDS: Aspirin 81 MG TAB.CHEW PO (09:10)
[2024-02-17] MEDS: Pantoprazole Sodium 40 MG Tablet PO (09:10)
[2024-02-17] MEDS: Allopurinol 100 MG Tablet PO (09:10)
[2024-02-17] MEDS: predniSONE 5 MG Tablet PO ×2 (09:10→17:34)
[2024-02-17] MEDS: Clopidogrel Bisulfate 75 MG Tablet PO (09:11)
[2024-02-17] MEDS: ZONISAMIDE 100 MG CAPSULE 200 MG PO ×2 (09:11→20:46)
[2024-02-17] MEDS: Lubiprostone 24 MCG Capsule PO ×2 (09:11→20:38)
[2024-02-17] MEDS: Montelukast 10 MG Tablet PO (09:11)
[2024-02-17] MEDS: Menthol/Lanolin/Calamine/Znox 113 GM Tube 1 APPLIC TOPICAL ×2 (09:13→20:44)
[2024-02-17] MEDS: Nystatin Powder 15gm Bottle 1 APPLIC TOPICAL ×2 (09:13→20:44)
[2024-02-17] MEDS: Enoxaparin 40 MG/0.4 ML Syringe SC (09:13)
--- NOTE | 2024-02-17 09:28 | CASEMGMT ---
Discharge Planning Updates sent via [facility] to [facility]. Precious Encarnacion DC Planning Asst.
--- NOTE | 2024-02-17 11:26 | CASEMGMT ---
Discharge Planning [facility] has obtained auth to admit. It is good 02/16-02/22. Precious Encarnacion DC Planning Asst.
[2024-02-17] MEDS: Senna/Docusate Sodium 1 Tablet 2 TABLET PO (13:49)
--- NOTE | 2024-02-17 15:08 | TREXTCAR_ITS ---
Diet Diet Order/Speech Therapy: 02/14/24 21:31 Diet: Cardiac - Heart Healthy Food consistency:: Regular Liquid Consistency:: Regular/Thin Routine Orders/Code Status Code Status: Full Code Wound(s) L forehead: Wound Type: Laceration R forearm: Wound Type: Skin Tear R lateral foot: Wound Type: Skin Tear R heel: Wound Type: healed pressure wound R upper buttock: Wound Type: small open area Therapies Weight Bearing: Weight bearing as tolerated Physical Therapy: Eval and Treat Occupational Therapy: Eval and Treat Problem/Diagnosis (1) Right sided weakness: Status: Acute Code(s): R53.1 - Weakness (2) Ischemic stroke: Status: Acute Code(s): I63.9 - Cerebral infarction, unspecified Comment: UNABLE TO VERIFY BY MRI-UNABLE TO HAVE MRI DUE TO PAIN PUMP (3) Hypothyroidism: Status: Chronic Code(s): E03.9 - Hypothyroidism, unspecified (4) Chronic pain: Status: Chronic Code(s): G89.29 - Other chronic pain (5) Abdominal pain in female: Status: Chronic Code(s): R10.9 - Unspecified abdominal pain (6) Seizure disorder: Status: Chronic Code(s): G40.909 - Epilepsy, unspecified, not intractable, without status epilepticus Allergies/Procedures Done in Hospital Allergies codeine Allergy (Intermediate, Verified 02/14/24 22:34) Nausea/Vom/Diarrhea hydrocodone Allergy (Intermediate, Verified 02/14/24 22:34) Nausea adhesive tape Allergy (Mild, Verified 02/14/24 22:34) Hives furosemide (From Lasix) Allergy (Verified 02/14/24 22:34) NEEDS FOLLOW-UP pregabalin (From Lyrica) Allergy (Verified 02/14/24 22:34) NEEDS FOLLOW-UP celecoxib Adverse Reaction (Intermediate, Verified 02/14/24 22:34) Nausea oxycodone Adverse Reaction (Intermediate, Verified 02/14/24 22:34) Nausea lansoprazole Adverse Reaction (Verified 02/14/24 22:34) Nausea meloxicam Adverse Reaction (Verified 02/14/24 22:34) Nausea mirtazapine Adverse Reaction (Verified 02/14/24 22:34) Nausea naloxone (From John NX) Adverse Reaction (Verified 02/14/24 22:34) Nausea pentazocine Adverse Reaction (Verified 02/14/24 22:34) Nausea rofecoxib Adverse Reaction (Verified 02/14/24 22:34) Nausea Procedures: 2-D Echocardiogram Type of Care/Length of Stay Estimated LOS: Convalescent Care Less Than 30 days Type of Care Needed: Skilled Rehab Potential: Good Prognosis: Good Additional Orders/Day of Discharge H&P will serve as current which was dated: 02/14/24 Day of Discharge: 02/17/24 Dietary and Speech Recommendations Dietitian Recommendations/Changes: Will continue cardiac diet as ordered; restrict carbohydrates as needed. ONS as needed if PO established suboptimal at meals; will defer for now. Discharge Plan Admission Admit Date/Time: 02/16/24 12:52 Primary Reason for Your Visit: acute CVA Attending Provider: Reilly Upton Primary Care Provider: Owen Nguyen Consulting Providers: Rivas Fenton; Yumiko White; Kathy Armendariz; Makenzie Suarez; Marge Dumas; Isra Quintero; Katie Olvera; Georgi Salazar; Fabián Fermin; Joseph Trent; Nicole De La Rosa; Malachi Norris; Keren Pollard; Woody Zhang; Jaison Mena; Dony Rain; Muriel Casey; Loc Dean; Abby Marquez; Michael Khan; Jolene Wagoner; Stephon Ayala Discharge Orders/Prescriptions Prescriptions: New atorvastatin 80 mg Tablet 80 mg PO QHS Qty: 0 0RF sennosides-docusate sodium [Stimulant Laxative Plus] 8.6-50 mg Tablet 2 tab PO BID PRN PRN (Reason: Constipation) Qty: 0 0RF metoprolol succinate 25 mg Tablet Extended Release 24 Hr 25 mg PO DAILY Qty: 0 0RF nystatin [Nyamyc] 100,000 unit/gram Powder 1 applic topical BID Qty: 0 0RF Protocol: *Topical Application Instructions APPLICATION INSTRUCTIONS: apply to groin menthol-zinc oxide [Calmoseptine] 0.44-20.6 % Ointment 1 applic topical BID Qty: 0 0RF Protocol: *Topical Application Instructions APPLICATION INSTRUCTIONS: apply to buttocks/coccyx area Continued acetaminophen 325 mg tablet 650 mg PO Q4H PRN (Reason: pain) allopurinol 100 mg tablet 100 mg PO DAILY aspirin 81 mg tablet,delayed release (DR/EC) 81 mg PO DAILY Austedo 12 mg tablet 12 mg PO BID baclofen 10 mg tablet 10 mg PO Q8H PRN (Reason: muscle spasm) buspirone 10 mg tablet 20 mg PO TID clopidogrel 75 mg tablet 75 mg PO DAILY Creon 24,000-76,000 -120,000 unit capsule,delayed release(DR/EC) 2 cap PO 4X/DAY Combivent Respimat 20-100 mcg/actuation mist 1 puff inhalation 4X/DAY Culturelle 15 billion cell capsule, sprinkle 1 cap PO 4X/DAY multivitamin [Daily Multi-Vitamin] Tablet 1 tab PO DAILY docusate sodium 100 mg capsule 100 mg PO DAILY ergocalciferol (vitamin D2) 1,250 mcg (50,000 unit) capsule 1,250 mcg PO WE fludrocortisone 0.1 mg tablet 0.1 mg PO DAILY Rx Instructions: HOLD IF SBP >130 ezetimibe 10 mg tablet 10 mg PO DAILY levothyroxine 75 mcg tablet 75 mcg PO DAILY loperamide 2 mg tablet 2 mg PO Q6H PRN (Reason: loose stool) lubiprostone 24 mcg capsule 24 mcg PO BID melatonin 5 mg tablet 5 mg PO DAILY montelukast 10 mg tablet 10 mg PO DAILY mirtazapine 15 mg tablet 15 mg PO QHS nitroglycerin 0.3 mg tablet, sublingual 0.3 mg sublingual Q5M PRN (Reason: chest pain) Rx Instructions: do not exceed 3 doses per episode prednisone 5 mg tablet 5 mg PO BID potassium chloride 20 mEq tablet,ER particles/crystals 20 meq PO DAILY pantoprazole 40 mg tablet,delayed release (DR/EC) 40 mg PO DAILY paroxetine HCl 40 mg tablet 40 mg PO DAILY Patient Comments: MED LIST STATES 20MG, PT GOT 40MG FILLED ON 01/20/24 zonisamide 100 mg capsule 200 mg PO BID Discontinued metoprolol succinate 100 mg tablet extended release 24 hr 100 mg PO DAILY Patient Comments: MED LIST STATES 50MG, PT GOT 100MG FILLED ON 01/20/24 ondansetron 4 mg tablet,disintegrating 4 mg PO Q6H sennosides-docusate sodium [Senna with Docusate Sodium] 8.6-50 mg tablet 1 tab-cap PO BID PRN (Reason: constipation) Referrals / Follow Up: Owen Nguyen MD [Primary Care Provider] - In 1 Week Disposition Disposition (needs filled in before D/C Order can be placed): Detention Facility
--- NOTE | 2024-02-17 15:40 | DS.PCM_ITS ---
Providers Date of Admission: 02/14/24 Date of Discharge: 02/17/24 Primary Care Physician: Dr. Owen Galvan MD Consultations 02/14/24 21:30 Consult: Tele-Neurology Routine Consulting Provider: [facility] Reason for Consult: Acute Ischemic Stroke/TIA EMERGENT Consult: No MD Notified: Yes Date Notified: 02/14/24 Time Notified: 21:40 Method of Notification: Answering Service Nursing Unit Staff Notify [facility] of Tele-Neurology Consult: Yes Reason For Visit: CVA R/O Diagnosis Discharge Diagnosis (1) Right sided weakness: Status: Acute Code(s): R53.1 - Weakness (2) Ischemic stroke: Status: Acute Code(s): I63.9 - Cerebral infarction, unspecified (3) Hypothyroidism: Status: Chronic Code(s): E03.9 - Hypothyroidism, unspecified (4) Chronic pain: Status: Chronic Code(s): G89.29 - Other chronic pain (5) Abdominal pain in female: Status: Chronic Code(s): R10.9 - Unspecified abdominal pain (6) Seizure disorder: Status: Chronic Code(s): G40.909 - Epilepsy, unspecified, not intractable, without status epilepticus Medications at Discharge Home Medications Lactobacillus rhamnosus GG 15 billion cell sprinkle capsule (Culturelle) 1 cap PO 4X/DAY 02/14/24 acetaminophen 325 mg tablet 650 mg PO Q4H PRN pain 02/14/24 allopurinol 100 mg tablet 100 mg PO DAILY 02/14/24 aspirin 81 mg tablet,delayed release 81 mg PO DAILY 02/14/24 baclofen 10 mg tablet 10 mg PO Q8H PRN muscle spasm 02/14/24 buspirone 10 mg tablet 20 mg PO TID 02/14/24 clopidogrel 75 mg tablet 75 mg PO DAILY 02/14/24 deutetrabenazine 12 mg tablet (Austedo) 12 mg PO BID 02/14/24 docusate sodium 100 mg capsule 100 mg PO DAILY 02/14/24 ergocalciferol (vitamin D2) 1,250 mcg (50,000 unit) capsule 1,250 mcg PO WE 02/14/24 ezetimibe 10 mg tablet 10 mg PO DAILY 02/14/24 fludrocortisone 0.1 mg tablet 0.1 mg PO DAILY 02/14/24 ipratropium 20 mcg-albuterol 100 mcg/actuation mist for inhalation (Combivent Respimat) 1 puff inhalation 4X/DAY 02/14/24 levothyroxine 75 mcg tablet 75 mcg PO DAILY 02/14/24 [id number] 24,000-76,000-120,000 unit capsule,delayed rel (Creon) 2 cap PO 4X/DAY 02/14/24 loperamide 2 mg tablet 2 mg PO Q6H PRN loose stool 02/14/24 lubiprostone 24 mcg capsule 24 mcg PO BID 02/14/24 melatonin 5 mg tablet 5 mg PO DAILY 02/14/24 mirtazapine 15 mg tablet 15 mg PO QHS 02/14/24 montelukast 10 mg tablet 10 mg PO DAILY 02/14/24 multivitamin (Daily Multi-Vitamin tablet) 1 tab PO DAILY 02/14/24 nitroglycerin 0.3 mg sublingual tablet 0.3 mg sublingual Q5M PRN chest pain 02/14/24 pantoprazole 40 mg tablet,delayed release 40 mg PO DAILY 02/14/24 paroxetine HCl 40 mg tablet 40 mg PO DAILY 02/14/24 potassium chloride 20 mEq tablet,extended release(part/cryst) 20 meq PO DAILY 02/14/24 prednisone 5 mg tablet 5 mg PO BID 02/14/24 zonisamide 100 mg capsule 200 mg PO BID 02/14/24 atorvastatin 80 mg tablet 80 mg PO QHS #0 tabs 02/17/24 menthol 0.44 %-zinc oxide 20.6 % topical ointment (Calmoseptine) 1 applic topical BID #0 grams 02/17/24 metoprolol succinate 25 mg tablet,extended release 24 hr 25 mg PO DAILY #0 tabs 02/17/24 nystatin 100,000 unit/gram topical powder (Nyamyc) 1 applic topical BID #0 grams 02/17/24 sennosides 8.6 mg-docusate sodium 50 mg tablet (Stimulant Laxative Plus) 2 tab PO BID PRN PRN Constipation #0 tabs 02/17/24 Weight / BMI Weight Weight: 58.3 kg Body Mass Index (BMI) 22.0 ABG / Lab / Microbiology Data 02/15/24 07:03 02/15/24 07:03 Radiography Diagnostic Testing: Radiology Impression Echocardiogram 02/14/24 21:15 Interpretation Summary The estimated ejection fraction is 65 %. No evidence for diastolic dysfunction. Mild (1+) aortic valve insufficiency. Small pericardial effusion. Ordering Physician: Jolene Wagoner Referring Physician: OWEN GALVAN Performed By: Linda Sanchez and Student Meaningful Use Info Ischemic Stroke Statin Dosing Therapy Reference: STATIN DOSE THERAPY REFERENCE: * Patients > 75 years receive moderate or high dose statin therapy. * Patients 75 years or YOUNGER should receive HIGH intensity statin dose unless contraindicated. You will be required to document reason for non-treatment if statin daily dose does not meet guidelines. HIGH DOSE STATIN THERAPY DAILY Atorvastatin > than or = to 40 mg Rosuvastatin > than or = to 20 mg Amlodipine + Atorvastatin > than or = to 2.5/40 mg Ezetimibe + Simvastatin 10/80 mg Simvastatin 80mg Discharge Plan Admission Admit Date/Time: 02/16/24 12:52 Primary Reason for Your Visit: acute CVA Attending Provider: Reilly Upton Primary Care Provider: Owen Galvan Consulting Providers: Rivas Fenton; Yumiko White; Kathy Armendariz; Makenzie Suarez; Marge Dumas; Isra Quintero; Katie Olvera; Georgi Salazar; Fabián Fermin; Joseph Trent; Nicole De La Rosa; Malachi Norris; Keren Pollard; Woody Zhang; Jaison Mena; Dony Rain; Muriel Casey; Loc Dean; Abby Marquez; Michael Khan; Jolene Wagoner; Stephon Ayala Discharge Orders/Prescriptions Prescriptions: New atorvastatin 80 mg Tablet 80 mg PO QHS Qty: 0 0RF sennosides-docusate sodium [Stimulant Laxative Plus] 8.6-50 mg Tablet 2 tab PO BID PRN PRN (Reason: Constipation) Qty: 0 0RF metoprolol succinate 25 mg Tablet Extended Release 24 Hr 25 mg PO DAILY Qty: 0 0RF nystatin [Nyamyc] 100,000 unit/gram Powder 1 applic topical BID Qty: 0 0RF Protocol: *Topical Application Instructions APPLICATION INSTRUCTIONS: apply to groin menthol-zinc oxide [Calmoseptine] 0.44-20.6 % Ointment 1 applic topical BID Qty: 0 0RF Protocol: *Topical Application Instructions APPLICATION INSTRUCTIONS: apply to buttocks/coccyx area Continued acetaminophen 325 mg tablet 650 mg PO Q4H PRN (Reason: pain) allopurinol 100 mg tablet 100 mg PO DAILY aspirin 81 mg tablet,delayed release (DR/EC) 81 mg PO DAILY Austedo 12 mg tablet 12 mg PO BID baclofen 10 mg tablet 10 mg PO Q8H PRN (Reason: muscle spasm) buspirone 10 mg tablet 20 mg PO TID clopidogrel 75 mg tablet 75 mg PO DAILY Creon 24,000-76,000 -120,000 unit capsule,delayed release(DR/EC) 2 cap PO 4X/DAY Combivent Respimat 20-100 mcg/actuation mist 1 puff inhalation 4X/DAY Culturelle 15 billion cell capsule, sprinkle 1 cap PO 4X/DAY multivitamin [Daily Multi-Vitamin] Tablet 1 tab PO DAILY docusate sodium 100 mg capsule 100 mg PO DAILY ergocalciferol (vitamin D2) 1,250 mcg (50,000 unit) capsule 1,250 mcg PO WE fludrocortisone 0.1 mg tablet 0.1 mg PO DAILY Rx Instructions: HOLD IF SBP >130 ezetimibe 10 mg tablet 10 mg PO DAILY levothyroxine 75 mcg tablet 75 mcg PO DAILY loperamide 2 mg tablet 2 mg PO Q6H PRN (Reason: loose stool) lubiprostone 24 mcg capsule 24 mcg PO BID melatonin 5 mg tablet 5 mg PO DAILY montelukast 10 mg tablet 10 mg PO DAILY mirtazapine 15 mg tablet 15 mg PO QHS nitroglycerin 0.3 mg tablet, sublingual 0.3 mg sublingual Q5M PRN (Reason: chest pain) Rx Instructions: do not exceed 3 doses per episode prednisone 5 mg tablet 5 mg PO BID potassium chloride 20 mEq tablet,ER particles/crystals 20 meq PO DAILY pantoprazole 40 mg tablet,delayed release (DR/EC) 40 mg PO DAILY paroxetine HCl 40 mg tablet 40 mg PO DAILY Patient Comments: MED LIST STATES 20MG, PT GOT 40MG FILLED ON 01/20/24 zonisamide 100 mg capsule 200 mg PO BID Discontinued metoprolol succinate 100 mg tablet extended release 24 hr 100 mg PO DAILY Patient Comments: MED LIST STATES 50MG, PT GOT 100MG FILLED ON 01/20/24 ondansetron 4 mg tablet,disintegrating 4 mg PO Q6H sennosides-docusate sodium [Senna with Docusate Sodium] 8.6-50 mg tablet 1 tab-cap PO BID PRN (Reason: constipation) Referrals / Follow Up: Owen Galvan MD [Primary Care Provider] - In 1 Week Disposition Disposition (needs filled in before D/C Order can be placed): Intermediate Facility
--- NOTE | 2024-02-17 15:45 | CASEMGMT ---
SW spoke with patient and she was aware that she was going back to [facility] today. Patient does have her wheelchair with her. Plan: D/c back to [facility] [place] [facility] under skilled level of care. Physicians will transport patient. Nelly DEJESUS
--- NOTE | 2024-02-17 16:04 | CHAPLAIN ---
Type of Pastoral Visit _x__ Initial Visit ___ Follow-up Visit ___ On-call Visit ___ General Patient Visit ___ Spiritual Assessment ___ Family Conference ___ Bereavement ___ Rapid Response ___ Code Blue ___ Other (describe below) Pastoral Care Referral From _x__ Patient ___ Family ___ Nurse ___ Physician ___ Research Assistant ___ Lifeline Representatives ___ Other (describe below) Sacrament/Intervention _x__ Active listening ___ Anointing ___ Jainism ___ Bereavement ___ Communion _x__ Linda exploration ___ ___ Life review _x__ Prayer ___ Reconciliation ___ Sacrament of Sick _x__ Supportive presence ___ Wedding ___ Other (describe below) Pastoral Comments patient reports on her stroke and the recovery that is taking place; pt is pleased with her recovery and the good care received at this hospital; pt is to return to her ECF; pt states that she has no family but that she has three friends that look after her and help; pt is member of a [employer] orthodox in [place] and the iron installer also visits her; pt welcomes the presence and prayers of this control clerk subassembly while here in this hospital
--- NOTE | 2024-02-17 16:20 | CASEMGMT ---
Discharge Planning Discharge orders, signed med list, and transport time sent to [facility] via [facility]. Physicians will transport patient by wheelchair at 4:30. Nursing, SW, and patient updated. Precious Encarnacion DC Planning Asst.
--- NOTE | 2024-02-17 16:27 | CASEMGMT ---
There are currently some issues with transportation. MIKAYLA spoke with Jadyn from [facility] and she said they use [facility] transport. She tried to reach them, but they are not available. Jadyn said she can call tomorrow to see if they have availability to come pick patient up. MIKAYLA will check with Director to see if anything else can be done. Unfortunately patient will have to stay tonight and Jadyn from [facility] will contact their transport to see if they can come merchandise pickup/receiving associate patient. MIKAYLA notified patient. Nelly Clark PATIENT ACCESS ASSOCIATE ANJELICA
--- NOTE | 2024-02-17 19:01 | PCM.PN.HOSP ---
Reason for Visit Reason for Visit: Diagnoses Hypothyroidism, unspecified (02/16/24) Epilepsy, unspecified, not intractable, without status epilepticus (02/16/24) Other chronic pain (02/16/24) Cerebral infarction, unspecified (02/16/24) Unspecified abdominal pain (02/16/24) Weakness (02/16/24) Subjective Subjective Patient was seen and examined today, echocardiogram did not show any abnormality. Patient was set to go back to her senior living facility but transportation could not be set up for the patient without her paying $400 for the ambulance trip. Her discharge was canceled and tomorrow social security benefits interviewer will try to arrange for transportation for the patient to go back to her skilled facility. I talked briefly with pain management today, pain management stated that they would see the patient as an outpatient and adjust the medication and her pain pump. Objective Data Objective Data Vital Signs: Vital Signs Temp Pulse Resp BP Pulse Ox O2 Del Method 98.4 F 70 16 117/52 L 100 Room Air 02/17/24 16:05 02/17/24 16:05 02/17/24 16:05 02/17/24 16:05 02/17/24 16:05 02/17/24 16:05 Oxygen Delivery Method Room Air Weight: 58.3 kg Body Mass Index (BMI) 22.0 Intake & Output: Intake and Output for Last 24 Hours 02/15/24 02/16/24 02/17/24 23:59 23:59 23:59 Intake Total 800 / 800 240 / 240 600 / 600 Output Total 825 / 825 900 / 900 1000 / 1000 Balance -25 / -25 -660 / -660 -400 / -400 Lab / Micro Data 02/15/24 07:03 02/15/24 07:03 Radiography Diagnostic Testing: Radiology Impression Echocardiogram 02/14/24 21:15 Interpretation Summary The estimated ejection fraction is 65 %. No evidence for diastolic dysfunction. Mild (1+) aortic valve insufficiency. Small pericardial effusion. Ordering Physician: Jolene Wagoner Referring Physician: OLIVE GALVAN Performed By: Linda Sanchez and Student Physical Exam Const alert, oriented x3 and no apparent distress General Appearance: cooperative, well kempt and well developed Orientation / Consciousness: awake, oriented to person, oriented to place and oriented to time HEENT normocephalic, head/scalp atraumatic and moist oral mucous membranes Eyes PERRL, EOMs intact bilaterally and conjunctivae normal Neck supple, no JVD, thyroid normal and no carotid bruits General: trachea midline Resp normal respiratory effort, no retractions, no use of accessory muscles and clear to auscultation bilaterally Auscultation: Negative for rales, rhonchi or wheezes Cardio regular rate, regular rhythm, S1 normal heart sound, S2 normal heart sound, no murmurs, no rub and no gallops GI normal to inspection, nondistended, normoactive bowel sounds, soft to palpation, non-tender and non-distended Extremity no clubbing, cyanosis or edema Skin no rashes or lesions noted General Skin Exam: no breakdown Neuro oriented x3, CN's II-XII intact bilaterally, moves all extremities and no sensory deficits noted Sensorium / Orientation: awake and alert Speech: speech normal Psych affect normal Assessment & Plan Assessment/Plan (1) Ischemic stroke: PLAN: Plan 1. Ischemic stroke-due to the fact the patient cannot have an MRI (patient has an implanted pain pump), this cannot be absolutely confirmed but neurology feels that it is likely patient has had a stroke-continue PT and OT, patient will need to return to a senior living facility for further inpatient rehab, she remains on aspirin and Plavix #2 chronic abdominal pain-again I talked with pain management today, they will see the patient as an outpatient and evaluate her for change of medication and her pain pump #3 seizure disorder-patient will remain on her current medications #4 hypothyroidism-patient is on Synthroid Total clinical time spent by myself addressing patient's medical issues, reviewing all of her data, and collaborating with patient's care team: 35 minutes Charges/Coding Visit Charges Inpatient E&M: 68592 Subs Hosp L2
[2024-02-17] MEDS: Atorvastatin Calcium 80 MG Tablet PO (20:40)
[2024-02-17] MEDS: Mirtazapine 15 MG Tablet PO (20:41)
[2024-02-18 03:00] VITALS: BP 115/76; PULSE 71; RESP 18; TEMP 36.8; O2SAT 99
[2024-02-18] MEDS: busPIRone 5 MG Tablet 20 MG PO (05:33)
[2024-02-18] MEDS: Baclofen 10 MG Tablet PO ×2 (05:34→12:45)
[2024-02-18] MEDS: Acetaminophen 500 MG Tablet 1000 MG PO (05:34)
[2024-02-18] MEDS: Levothyroxine 75 MCG Tablet PO (05:34)
[2024-02-18] MEDS: Ipratropium/Albuterol Sulfate 3 ML AMPUL.NEB INHALATION (06:54)
[2024-02-18 06:55] VITALS: PULSE 70; RESP 18
[2024-02-18 09:30] VITALS: BP 134/67; PULSE 80; RESP 17; TEMP 36.8; O2SAT 97
[2024-02-18] MEDS: Montelukast 10 MG Tablet PO (09:34)
[2024-02-18] MEDS: predniSONE 5 MG Tablet PO (09:35)
[2024-02-18] MEDS: Aspirin 81 MG TAB.CHEW PO (09:35)
[2024-02-18] MEDS: Pantoprazole Sodium 40 MG Tablet PO (09:35)
[2024-02-18 09:36] VITALS: PULSE 80
[2024-02-18] MEDS: Allopurinol 100 MG Tablet PO (09:36)
[2024-02-18] MEDS: Ezetimibe 10 MG Tablet PO (09:36)
[2024-02-18] MEDS: Lactobacillis Acidophilus 1 CAP PO (09:36)
[2024-02-18] MEDS: Creon 24,000 unit DR Capsule 2 CAP PO (09:36)
[2024-02-18] MEDS: Metoprolol(XL)Succ 25 MG Tablet PO (09:36)
[2024-02-18] MEDS: Clopidogrel Bisulfate 75 MG Tablet PO (09:36)
[2024-02-18] MEDS: ZONISAMIDE 100 MG CAPSULE 200 MG PO (09:37)
[2024-02-18] MEDS: Paroxetine 20 MG Tablet 40 MG PO (09:37)
[2024-02-18] MEDS: Lubiprostone 24 MCG Capsule PO (09:38)
[2024-02-18] MEDS: Menthol/Lanolin/Calamine/Znox 113 GM Tube 1 APPLIC TOPICAL (09:45)
[2024-02-18] MEDS: Nystatin Powder 15gm Bottle 1 APPLIC TOPICAL (09:46)
[2024-02-18] MEDS: Senna/Docusate Sodium 1 Tablet 2 TABLET PO (09:46)
[2024-02-18] MEDS: Enoxaparin 40 MG/0.4 ML Syringe SC (09:46)
--- NOTE | 2024-02-18 10:58 | DS.PCM_ITS ---
Providers Date of Admission: 02/16/24 Date of Discharge: 02/18/24 Primary Care Physician: Dr. Owen Galvan MD Consultations 02/14/24 21:30 Consult: Tele-Neurology Routine Consulting Provider: [facility] Reason for Consult: Acute Ischemic Stroke/TIA EMERGENT Consult: No MD Notified: Yes Date Notified: 02/14/24 Time Notified: 21:40 Method of Notification: Answering Service Nursing Unit Staff Notify [facility] of Tele-Neurology Consult: Yes Reason For Visit: CVA R/O Diagnosis Discharge Diagnosis (1) Ischemic stroke: Status: Acute Code(s): I63.9 - Cerebral infarction, unspecified Plan 1. Ischemic stroke-due to the fact the patient cannot have an MRI (patient has an implanted pain pump), this cannot be absolutely confirmed but neurology feels that it is likely patient has had a stroke-continue PT and OT, patient will need to return to a custodial facility for further inpatient rehab, she remains on aspirin and Plavix #2 chronic abdominal pain-again I talked with pain management today, they will see the patient as an outpatient and evaluate her for change of medication and her pain pump #3 seizure disorder-patient will remain on her current medications #4 hypothyroidism-patient is on Synthroid Total clinical time spent by myself addressing patient's medical issues, reviewing all of her data, and collaborating with patient's care team: 35 minutes Medications at Discharge Home Medications Lactobacillus rhamnosus GG 15 billion cell sprinkle capsule (Culturelle) 1 cap PO 4X/DAY 02/14/24 acetaminophen 325 mg tablet 650 mg PO Q4H PRN pain 02/14/24 allopurinol 100 mg tablet 100 mg PO DAILY 02/14/24 aspirin 81 mg tablet,delayed release 81 mg PO DAILY 02/14/24 baclofen 10 mg tablet 10 mg PO Q8H PRN muscle spasm 02/14/24 buspirone 10 mg tablet 20 mg PO TID 02/14/24 clopidogrel 75 mg tablet 75 mg PO DAILY 02/14/24 deutetrabenazine 12 mg tablet (Austedo) 12 mg PO BID 02/14/24 docusate sodium 100 mg capsule 100 mg PO DAILY 02/14/24 ergocalciferol (vitamin D2) 1,250 mcg (50,000 unit) capsule 1,250 mcg PO WE 02/14/24 ezetimibe 10 mg tablet 10 mg PO DAILY 02/14/24 fludrocortisone 0.1 mg tablet 0.1 mg PO DAILY 02/14/24 ipratropium 20 mcg-albuterol 100 mcg/actuation mist for inhalation (Combivent Respimat) 1 puff inhalation 4X/DAY 02/14/24 levothyroxine 75 mcg tablet 75 mcg PO DAILY 02/14/24 rgotyb-[id number]-yuybrpo 24,000-76,000-120,000 unit capsule,delayed rel (Creon) 2 cap PO 4X/DAY 02/14/24 loperamide 2 mg tablet 2 mg PO Q6H PRN loose stool 02/14/24 lubiprostone 24 mcg capsule 24 mcg PO BID 02/14/24 melatonin 5 mg tablet 5 mg PO DAILY 02/14/24 mirtazapine 15 mg tablet 15 mg PO QHS 02/14/24 montelukast 10 mg tablet 10 mg PO DAILY 02/14/24 multivitamin (Daily Multi-Vitamin tablet) 1 tab PO DAILY 02/14/24 nitroglycerin 0.3 mg sublingual tablet 0.3 mg sublingual Q5M PRN chest pain 02/14/24 pantoprazole 40 mg tablet,delayed release 40 mg PO DAILY 02/14/24 paroxetine HCl 40 mg tablet 40 mg PO DAILY 02/14/24 potassium chloride 20 mEq tablet,extended release(part/cryst) 20 meq PO DAILY 02/14/24 prednisone 5 mg tablet 5 mg PO BID 02/14/24 zonisamide 100 mg capsule 200 mg PO BID 02/14/24 atorvastatin 80 mg tablet 80 mg PO QHS #0 tabs 02/17/24 menthol 0.44 %-zinc oxide 20.6 % topical ointment (Calmoseptine) 1 applic topical BID #0 grams 02/17/24 metoprolol succinate 25 mg tablet,extended release 24 hr 25 mg PO DAILY #0 tabs 02/17/24 nystatin 100,000 unit/gram topical powder (Nyamyc) 1 applic topical BID #0 grams 02/17/24 sennosides 8.6 mg-docusate sodium 50 mg tablet (Stimulant Laxative Plus) 2 tab PO BID PRN PRN Constipation #0 tabs 02/17/24 Hospital Course Operations None Procedures 2-D Echocardiogram Summary of Care Provided Minutes Spent on Discharge: 31 Hospital Course: This 73-year-old white female was seen in the emergency room at [facility] with complaints of generalized weakness. She was seen that day at pain management for her regular appointment and complained of weakness in her right upper extremity with inability to furnace operator oil or gas with her right hand and she was instructed to go to the ER for evaluation. Patient stated that when she went to bed the night before 11 PM she had no complaints and when she woke at 6 AM she noticed that she had difficulty moving her right arm. She stated in the emergency room that she could move her right arm but she had decreased furnace operator oil or gas strength. Patient's NIH score in the emergency room was 0, CTA of the head and neck showed no large vessel occlusive disease, CT of the head did not show any evidence of acute process. Patient was admitted to PCU, NIH scores were monitored and she had an echocardiogram performed which was unremarkable. Teleneuro consult was placed, patient cannot have an MRI due to her implantable pain pump. Teleneurology was not sure if the patient had a stroke and felt that the patient needed to be on dual antiplatelet treatment. Patient was placed on aspirin and Plavix, she was seen by PT and OT and was felt to be a candidate for short-term placement in a custodial facility for rehab services. Patient's transfer was delayed due to ambulance transport difficulties. On 02/18/2024, patient was seen and examined: On examination she appeared in good health and spirits, she does not appear to be in any distress. Vital signs as documented. Skin warm and dry and without overt rashes. Neck without JVD, thyroid appears normal, trachea is midline, neck is supple. Lungs clear, normal air movement was noted. Heart exam notable for regular rhythm, normal sounds and absence of murmurs, rubs or gallops. Abdomen unremarkable and without evidence of organomegaly, masses, or abdominal aortic enlargement, bowel sounds are present in all 4 quadrants, no abdominal tenderness was noted. Extremities nonedematous, no cyanosis was noted, no clubbing was noted. Neuro: Cranial nerves II through XII are grossly intact, no focal motor deficits were noted, sensation to light touch and pinprick is intact, motor exam 5/5 throughout. Psych: Patient is alert and oriented x3, she does not appear anxious or depressed, she does not appear agitated. Patient was felt to be stable for discharge to an extended care facility on 02/18/2024. Weight / BMI Weight Weight: 58.3 kg Body Mass Index (BMI) 22.0 ABG / Lab / Microbiology Data 02/15/24 07:03 02/15/24 07:03 Radiography Diagnostic Testing: Radiology Impression Echocardiogram 02/14/24 21:15 Interpretation Summary The estimated ejection fraction is 65 %. No evidence for diastolic dysfunction. Mild (1+) aortic valve insufficiency. Small pericardial effusion. Ordering Physician: Jolene Wagoner Referring Physician: OWEN GALVAN Performed By: Linda Sanchez and Student Meaningful Use Info Meaningful Use Meaningful Use Diagnoses (Choose all that apply): Ischemic CVA CVA Therapy Assessed for PT,OT and/or ST?: Yes Ischemic Stroke Antithrombotic order at d/c?: Yes Dx of Atrial fib/flutter?: No Anticoagulant at discharge?: No Reason anticoagulant not ordered: Treatment not Indicated Statin Dosing Therapy Reference: STATIN DOSE THERAPY REFERENCE: * Patients > 75 years receive moderate or high dose statin therapy. * Patients 75 years or YOUNGER should receive HIGH intensity statin dose unless contraindicated. You will be required to document reason for non-treatment if statin daily dose does not meet guidelines. HIGH DOSE STATIN THERAPY DAILY Atorvastatin > than or = to 40 mg Rosuvastatin > than or = to 20 mg Amlodipine + Atorvastatin > than or = to 2.5/40 mg Ezetimibe + Simvastatin 10/80 mg Simvastatin 80mg Statins at discharge?: Yes If patient is 75 or younger, pt will be discharged on HIGH intensity statin.: Y es Primary Dx Acute Ischemic CVA?: Yes IV thrombolytic ordered during stay?: No Reason IV thrombolytic not ordered: Treatment not Indicated Discharge Plan Admission Admit Date/Time: 02/16/24 12:52 Primary Reason for Your Visit: acute CVA Attending Provider: Reilly Upton Primary Care Provider: Owen Galvan Consulting Providers: Rivas Fenton; Yumiko White; Kathy Armendariz; Makenzie Suarez; Marge Dumas; Isra Quintero; Katie Olvera; Georgi Salazar; Fabián Fermin; Joseph Trent; Nicole De La Rosa; Malachi Norris; Keren Pollard; Woody Zhang; Jaison Mena; Dony Rain; Muriel Casey; Loc Dean; Abby Marquez; Michael Khan; Jolene Wagoner; Stephon Ayala Discharge Orders/Prescriptions Prescriptions: New atorvastatin 80 mg Tablet 80 mg PO QHS Qty: 0 0RF sennosides-docusate sodium [Stimulant Laxative Plus] 8.6-50 mg Tablet 2 tab PO BID PRN PRN (Reason: Constipation) Qty: 0 0RF metoprolol succinate 25 mg Tablet Extended Release 24 Hr 25 mg PO DAILY Qty: 0 0RF nystatin [Nyamyc] 100,000 unit/gram Powder 1 applic topical BID Qty: 0 0RF Protocol: *Topical Application Instructions APPLICATION INSTRUCTIONS: apply to groin menthol-zinc oxide [Calmoseptine] 0.44-20.6 % Ointment 1 applic topical BID Qty: 0 0RF Protocol: *Topical Application Instructions APPLICATION INSTRUCTIONS: apply to buttocks/coccyx area Continued acetaminophen 325 mg tablet 650 mg PO Q4H PRN (Reason: pain) allopurinol 100 mg tablet 100 mg PO DAILY aspirin 81 mg tablet,delayed release (DR/EC) 81 mg PO DAILY Austedo 12 mg tablet 12 mg PO BID baclofen 10 mg tablet 10 mg PO Q8H PRN (Reason: muscle spasm) buspirone 10 mg tablet 20 mg PO TID clopidogrel 75 mg tablet 75 mg PO DAILY Creon 24,000-76,000 -120,000 unit capsule,delayed release(DR/EC) 2 cap PO 4X/DAY Combivent Respimat 20-100 mcg/actuation mist 1 puff inhalation 4X/DAY Culturelle 15 billion cell capsule, sprinkle 1 cap PO 4X/DAY multivitamin [Daily Multi-Vitamin] Tablet 1 tab PO DAILY docusate sodium 100 mg capsule 100 mg PO DAILY ergocalciferol (vitamin D2) 1,250 mcg (50,000 unit) capsule 1,250 mcg PO WE fludrocortisone 0.1 mg tablet 0.1 mg PO DAILY Rx Instructions: HOLD IF SBP >130 ezetimibe 10 mg tablet 10 mg PO DAILY levothyroxine 75 mcg tablet 75 mcg PO DAILY loperamide 2 mg tablet 2 mg PO Q6H PRN (Reason: loose stool) lubiprostone 24 mcg capsule 24 mcg PO BID melatonin 5 mg tablet 5 mg PO DAILY montelukast 10 mg tablet 10 mg PO DAILY mirtazapine 15 mg tablet 15 mg PO QHS nitroglycerin 0.3 mg tablet, sublingual 0.3 mg sublingual Q5M PRN (Reason: chest pain) Rx Instructions: do not exceed 3 doses per episode prednisone 5 mg tablet 5 mg PO BID potassium chloride 20 mEq tablet,ER particles/crystals 20 meq PO DAILY pantoprazole 40 mg tablet,delayed release (DR/EC) 40 mg PO DAILY paroxetine HCl 40 mg tablet 40 mg PO DAILY Patient Comments: MED LIST STATES 20MG, PT GOT 40MG FILLED ON 01/20/24 zonisamide 100 mg capsule 200 mg PO BID Discontinued metoprolol succinate 100 mg tablet extended release 24 hr 100 mg PO DAILY Patient Comments: MED LIST STATES 50MG, PT GOT 100MG FILLED ON 01/20/24 ondansetron 4 mg tablet,disintegrating 4 mg PO Q6H sennosides-docusate sodium [Senna with Docusate Sodium] 8.6-50 mg tablet 1 tab-cap PO BID PRN (Reason: constipation) Referrals / Follow Up: Owen Galvan MD [Primary Care Provider] - In 1 Week Disposition Disposition (needs filled in before D/C Order can be placed): Senior Care Facility Charges/Coding Visit Charges Inpatient E&M: 22329 Disch Hosp >30min
--- NOTE | 2024-02-18 11:06 | PHA.DC.MR.R ---
Pharmacy [place] Med Reconciliation Pharmacy Service has performed discharge medication reconciliation for this patient. The patient's discharge medication list was reviewed for discrepancies and discrepancies were resolved. Medications at Discharge Home Medications Lactobacillus rhamnosus GG 15 billion cell sprinkle capsule (Culturelle) 1 cap PO 4X/DAY 02/14/24 acetaminophen 325 mg tablet 650 mg PO Q4H PRN pain 02/14/24 allopurinol 100 mg tablet 100 mg PO DAILY 02/14/24 aspirin 81 mg tablet,delayed release 81 mg PO DAILY 02/14/24 baclofen 10 mg tablet 10 mg PO Q8H PRN muscle spasm 02/14/24 buspirone 10 mg tablet 20 mg PO TID 02/14/24 clopidogrel 75 mg tablet 75 mg PO DAILY 02/14/24 deutetrabenazine 12 mg tablet (Austedo) 12 mg PO BID 02/14/24 docusate sodium 100 mg capsule 100 mg PO DAILY 02/14/24 ergocalciferol (vitamin D2) 1,250 mcg (50,000 unit) capsule 1,250 mcg PO WE 02/14/24 ezetimibe 10 mg tablet 10 mg PO DAILY 02/14/24 fludrocortisone 0.1 mg tablet 0.1 mg PO DAILY 02/14/24 ipratropium 20 mcg-albuterol 100 mcg/actuation mist for inhalation (Combivent Respimat) 1 puff inhalation 4X/DAY 02/14/24 levothyroxine 75 mcg tablet 75 mcg PO DAILY 02/14/24 [id number]-koyyzjey-eivxzic 24,000-76,000-120,000 unit capsule,delayed rel (Creon) 2 cap PO 4X/DAY 02/14/24 loperamide 2 mg tablet 2 mg PO Q6H PRN loose stool 02/14/24 lubiprostone 24 mcg capsule 24 mcg PO BID 02/14/24 melatonin 5 mg tablet 5 mg PO DAILY 02/14/24 mirtazapine 15 mg tablet 15 mg PO QHS 02/14/24 montelukast 10 mg tablet 10 mg PO DAILY 02/14/24 multivitamin (Daily Multi-Vitamin tablet) 1 tab PO DAILY 02/14/24 nitroglycerin 0.3 mg sublingual tablet 0.3 mg sublingual Q5M PRN chest pain 02/14/24 pantoprazole 40 mg tablet,delayed release 40 mg PO DAILY 02/14/24 paroxetine HCl 40 mg tablet 40 mg PO DAILY 02/14/24 potassium chloride 20 mEq tablet,extended release(part/cryst) 20 meq PO DAILY 02/14/24 prednisone 5 mg tablet 5 mg PO BID 02/14/24 zonisamide 100 mg capsule 200 mg PO BID 02/14/24 atorvastatin 80 mg tablet 80 mg PO QHS #0 tabs 02/17/24 menthol 0.44 %-zinc oxide 20.6 % topical ointment (Calmoseptine) 1 applic topical BID #0 grams 02/17/24 metoprolol succinate 25 mg tablet,extended release 24 hr 25 mg PO DAILY #0 tabs 02/17/24 nystatin 100,000 unit/gram topical powder (Nyamyc) 1 applic topical BID #0 grams 02/17/24 sennosides 8.6 mg-docusate sodium 50 mg tablet (Stimulant Laxative Plus) 2 tab PO BID PRN PRN Constipation #0 tabs 02/17/24
--- NOTE | 2024-02-18 11:08 | CASEMGMT ---
[facility] via [facility] contracted transport company. Orders were sent yesterday. Plan: d/c back to [facility] under skilled level of care. Transportation was through [facility] contracted transport company. Nelly DEJESUS
[2024-02-18 12:08] VITALS: BP 143/72; PULSE 83; RESP 17; TEMP 36.6; O2SAT 98
== END 2024-02-18 12:55 | disposition skilled nursing facility (03) | DRG 65 ==
LOC: ED 17:32 → PCU 18:14
PROVIDERS: Admitting Provider Internal Medicine; Emergency Provider Emergency Medicine; PCP Anesthesiology; Visit Provider Internal Medicine
DX: I63.9 Cerebral infarction, unspecified (principal); I13.0 Hypertensive heart and chronic kidney disease with heart failure and stage 1 through stage 4 chronic kidney disease, or unspecified chronic kidney disease; C85.83 Other specified types of non-Hodgkin lymphoma, intra-abdominal lymph nodes; G81.91 Hemiplegia, unspecified affecting right dominant side; G25.9 Extrapyramidal and movement disorder, unspecified; K86.1 Other chronic pancreatitis; E11.22 Type 2 diabetes mellitus with diabetic chronic kidney disease; J44.9 Chronic obstructive pulmonary disease, unspecified; G40.909 Epilepsy, unspecified, not intractable, without status epilepticus; N18.9 Chronic kidney disease, unspecified; E03.9 Hypothyroidism, unspecified; I50.9 Heart failure, unspecified; M79.7 Fibromyalgia; M10.9 Gout, unspecified; K21.9 Gastro-esophageal reflux disease without esophagitis; R27.0 Ataxia, unspecified; R47.1 Dysarthria and anarthria; R29.709 NIHSS score 9; F43.10 Post-traumatic stress disorder, unspecified; R10.9 Unspecified abdominal pain; G89.29 Other chronic pain; Z79.890 Hormone replacement therapy; Z79.02 Long term (current) use of antithrombotics/antiplatelets; Z79.52 Long term (current) use of systemic steroids; Z79.899 Other long term (current) drug therapy; Z86.73 Personal history of transient ischemic attack (TIA), and cerebral infarction without residual deficits
CPT/HCPCS: 36415; 70450; 70496; 70498; 71046; 80048; 80053; 80061; 81001; 82962; 83605; 83690; 83735; 84443; 84484; 85025; 85610; 92610; 93005; 93306; 94640; 94668; 94762; 97162; 97166; 97530; 97535; 97802; 99284; J7040; Q9967; A4216